=== PATIENT | female | born 1995 | race Caucasian/White ===

== ENCOUNTER 2023-03-27 12:18 | Emergency (ER) | payer MEDICAID, SELFPAY ==
--- NOTE | ~2023-03-27 | US_ITS ---
STUDY: Surgical ultrasound INDICATION: Confirm IUP, positive hCG greater than 6000 COMPARISON: None TECHNIQUE: Transabdominal imaging performed. Permanent documented images obtained. FINDINGS: Single live intrauterine gestation is identified with heart rate of 140 bpm in the cephalic presentation. The estimated weight is 3 lbs. 5 oz., 1490 g. Estimated date of delivery by today's measurements 06/01/2023, from last menstrual period, 08/07/2023. Gestational age is 30 weeks 4 days in comparison with age by last menstrual period of 21 weeks 0 days. Following biometry utilized in the calculations: Biparietal diameter, 8.49 cm, corresponding to 34 weeks 2 days. Occipital frontal diameter, 7.91 cm corresponding to 24 weeks 6 days. Head circumference, 25.78 cm corresponding to 28 weeks 1 day. Abdominal circumference, 25.74 cm corresponding to 30 weeks 0 days. Femur length 5.68 cm corresponding to 29 weeks 6 days. Fluid-filled stomach, bladder, nonhydronephrotic kidneys, four-chamber heart and visualized intracranial structures are unremarkable in appearance. Placenta is anterior in location. US/US OB limited IMPRESSION: Single live 30 week 4 day intrauterine gestation, cephalic presentation, anterior placenta.
--- NOTE | 2023-03-27 12:33 | MHC.CARE ---
Addendum entered by Marcy Amezquita [facility] 03/27/23 12:36: She has been deemed inpt LOC by [facility], who will fax the assessment over once complete. She is pending placement. Original Note: patient seen by YANN in the community. Lidia LERNER reports that patient sent on section 12 due to inability to care for self. Pt presented as religiously pre-occupied, not believed to be eating, no utilizes at her apartment. no furniture. They're concerned she may also be . She is not welcome back at her apartment, possible mold there and due to no utilities, patient has been sleeping in the lobby as there is heat/ electricity there.
--- NOTE | 2023-03-27 12:56 | ED.PSYCH ---
HPI - Psych General Chief Complaint: Psychiatric Symptoms Stated Complaint: SI Time Seen by Provider: 03/27/23 12:27 Source: patient, EMS and RN notes reviewed Mode of arrival: EMS History of Present Illness HPI Narrative: Patient is a 27-year-old female with unknown past medical history presenting to the emergency department on a Section 12 for inability to care for herself. [facility] in the community reports patient has no utilities in her apartment, living space may be infested with mold, and patient likely not eating. Patient currently denies any suicidal or homicidal ideation, denies any auditory or visual hallucinations. States I'm only here because other people don't mind their own business. Patient denies any physical complaints. She denies any drug or alcohol use or ingestion. Denies any falls or other trauma. Patient reports that she was/is but states that I am releasing it, I'm in the process of releasing it. She denies current vaginal bleeding or other vaginal discharge. MD complaint: suicidal ideation Associated symptoms: denies other symptoms Related Data Home Medications Medication Instructions Recorded Confirmed No Known Home Meds 03/27/23 03/27/23 Allergies Allergy/AdvReac Type Severity Reaction Status Date / Time Chocolate AdvReac Hives Verified 03/27/23 18:05 SEAFOOD Allergy Severe ANAPHYLAXIS Uncoded 02/25/20 17:30 Review of Systems Review of Systems: As per HPI. Yes all other systems are reviewed and are negative Constitutional: Constitutional: Reports as per HPI [facility] Social History Social History Advance Directives: No Physical Exam Vital Signs: Vital Signs: Last Vital Signs Temp 97.5 F 03/28/23 00:22 Pulse 63 03/28/23 00:22 Resp 16 03/28/23 00:22 BP 99/55 L 03/28/23 00:22 Pulse Ox 98 03/28/23 00:22 O2 Del Method Room Air 03/28/23 00:22 BMI result Body Mass Index 28.3 Const: General: cooperative, healthy appearing and no acute distress Orientation/consciousness: oriented to person, oriented to place, oriented to time and patient oriented x3 Limitations: no limitations HEENT: Head: Yes normocephalic and Yes atraumatic Ears: external ears normal General nose exam: Normal external nose present Face and sinus: Yes face symmetric Mouth: oropharynx normal and moist mucous membranes Throat: Yes uvula midline Eyes: Pupils: Equal, round and reactive pupils present Neck: Neck: Yes normal visual inspection and Yes supple Resp: Effort & Inspection: normal respiratory effort and able to speak in complete sentences Auscultation: clear to auscultation bilaterally Cardio: Rate: regular rate Rhythm: regular rhythm Heart sounds: S1 normal heart sound present and S2 normal heart sound present GI: Inspection: Yes distended Palpation (GI): Soft to palpation and nontender Auscultation: normoactive bowel sounds : General: Yes no CVA tenderness Back/Spine/Pelvis: Back: no CVA tenderness Skin: General skin exam: elasticity normal and turgor normal Neuro: General: oriented to person, oriented to place, oriented to time, patient oriented x3, moves all extremities, no focal motor deficits and CN's II-XI intact bilaterally Cranial nerves: Yes Equal, round and reactive pupils present Cognition (Neuro): normal cognition Extrem: General: Yes full ROM, Yes no pedal edema and Yes no calf tenderness Psych: Mental Status: mental status grossly normal Speech and movement: Normal speech and movement present Affect: normal affect Attitude: cooperative Thought process: Illogical thought process present Medical Decision Making Medical Decision Making [facility] Narrative: Patient is a 27-year-old female with unknown past medical history presenting to the emergency department on a Section 12 for reported suicidal statements. On exam patient is awake, A+Ox3, VS WNL, afebrile, normal neurological exam without focal deficits, physical exam findings as above. Given reported symptoms and physical exam findings, initial differential includes unable to care for self, anxiety, depression, paranoia, delusions, . Labs notable for positive urine and HCG of 6213. Patient unable to report whether she has or has not had any OB care. Will obtain ultrasound to confirm IUP. Ultrasound notable for confirmed intrauterine . My interpretation is in agreement with the radiologist's interpretation. Patient medically cleared and placed on physician obs for CARE team eval. Differential Diagnosis Differential Diagnoses: The differential diagnosis associated with the presentation includes As per [facility] Admission/Observation Consideration of admission/observation: Escalation of care including admission/observation considered Consult Healthcare Provider Management of the patient was discussed with: [employer] (CARE team) Lab Data [facility] Lab Attestation statement: I reviewed the patient's lab results. As per [facility] 03/27/23 13:51 10/18/23 13:51 Labs: Lab Results 03/27/23 03/27/23 03/27/23 Range/Units 13:45 13:46 13:51 WBC 9.2 (4.8-10.8) X10*3/uL RBC 3.84 L (4.20-5.50) X10*6/uL Hgb 12.0 (12.0-16.0) g/dl Hct 36.2 L (37.0-47.0) % MCV 94.3 (80.0-98.0) fL MCH 31.3 (27.0-33.0) pg MCHC 33.1 (31.0-35.0) g/dl RDW 13.7 (11.0-16.0) % Plt Count 260 (160-400) X10*3/uL MPV 9.3 L (9.4-12.3) fL Immature Gran % (Auto) 0.3 (0.0-0.4) % Neut % (Auto) 81.9 H (45-73) % Lymph % (Auto) 13.1 L (20-40) % [place] % (Auto) 3.8 (2-11) % Eos % (Auto) 0.8 (0-4) % Baso % (Auto) 0.1 (0-2) % Lymph # (Auto) 1.2 (1.2-4.9) X10*3/uL [place] # (Auto) 0.4 (0.1-1.2) X10*3/uL Eos # (Auto) 0.1 (0.0-0.4) X10*3/uL Baso # (Auto) 0.0 (0.0-0.2) X10*3/uL Abs Immat Gran (auto) 0.03 (0.00-0.03) X10*3/uL Absolute Neuts (auto) 7.6 (2.0-8.3) x10*3/uL Absolute Nucleated RBC 0.000 (0.0-0.012) X10*3/uL Nucleated RBC % (auto) 0.0 (0.0-0.2) /100WBC Sodium 136 (135-145) mmol/L Potassium 4.2 (3.3-5.1) mmol/L Chloride 103 (96-108) mmol/L Carbon Dioxide 22 (22-29) mmol/L Anion Gap 15 (12-20) BUN 4 L (9-16) mg/dL Creatinine 0.58 (0.5-1.4) mg/dL Estim Creat Clear Calc 136.2 Estimated GFR > 60 Random Glucose 162 H (60-115) mg/dL Calcium 9.0 (8.4-10.2) mg/dL Beta HCG, Quant 6213 mIU/mL Urine Color Yellow Urine Appearance Clear Urine pH 8.0 (5.0-9.0) Ur Specific [place] 1.020 (1.005-1.025) Urine Protein Trace (Neg-Trace) mg/dL Urine Glucose (UA) Negative (Negative) mg/dL Urine Ketones Negative (Negative) mg/dL Urine Blood Negative (Negative) Urine Nitrite Negative (Negative) Ur Leukocyte Esterase Negative (Negative) Urine RBC 0-2 (0-2) /HPF Urine WBC 0-5 (0-5) /HPF Ur Squamous Epith Cells 0-2 (0-2) /HPF Urine Bacteria None Seen (None Seen) Hyaline Casts 0-2 (0-2) /LPF Urine Test POSITIVE H (NEGATIVE) Salicylates < 5.0 L (15-30) mg/dL Urine Opiates Screen Not Detected (Not Detect) Urine Fentanyl Screen Not Detected (Not Detect) Acetaminophen < 17 (<30) mcg/mL Ur Barbiturates Screen Not Detected (Not Detect) Ur Phencyclidine Scrn Not Detected (Not Detect) Ur Amphetamines Screen Not Detected (Not Detect) U Benzodiazepines Scrn Not Detected (Not Detect) Urine Cocaine Screen Not Detected (Not Detect) U Marijuana (THC) Screen Not Detected (Not Detect) Ethyl Alcohol < 10 mg/dL COVID-19 ([facility]IRDIE) Negative (Negative) COVID-19 Clin Com See Note Independent Interpretation I performed an independent interpretation of an: Ultrasound Interpretation: confirmed IUP Radiology Impression Discussion of test interpretation with radiology: I have reviewed the radiologist's reading. External Record Review External record reviewed: Inpatient record, Office record and Outpatient record Discharge Plan Discharge Clinical Impression: Unable to care for self Patient Disposition: Still a Patient Prescriptions: No Action No Known Home Meds Interventions: Valentine-Suicide Risk Severity Scale Last Done: 03/28/23 05:35
[2023-03-27 13:41] VITALS: BP 123/77; BP 140/80; PULSE 94; PULSE 96; RESP 16; TEMP 36.7; O2SAT 100; O2SAT 99; BMI 28.3
[2023-03-27 13:56] LABS: MANUAL DIFF FLAG NO
[2023-03-27 14:00] LABS: Appearance Urine Clear; Color Urine Yellow; Glucose Urine UA Negative (Negative); Leukocyte Esterase Urine Negative (Negative); Nitrite Urine Negative (Negative); Urine Blood Negative (Negative); Urine Ketones Negative (Negative); Urine Protein Trace mg/dL (Neg-Trace)
[2023-03-27 14:01] LABS: UPreg QC Valid YES
[2023-03-27 14:03] LABS: Red Blood Count 3.84 X10*6/uL (4.20-5.50); White Blood Count 9.2 X10*3/uL (4.8-10.8)
[2023-03-27 14:04] LABS: Basophils Percent Auto 0.1 % (0-2); Eosinophils Absolute Auto 0.1 X10*3/uL (0.0-0.4); Eosinophils Percent Auto 0.8 % (0-4); Hematocrit 36.2 % (37.0-47.0); Imm Gran Abs Auto 0.03 X10*3/uL (0.00-0.03); Imm Gran Pct Auto 0.3 % (0.0-0.4); Lymphocytes Absolute Auto 1.2 X10*3/uL (1.2-4.9); Lymphocytes Percent Auto 13.1 % (20-40); Mean Corpuscular HGB Conc 33.1 g/dl (31.0-35.0); Mean Corpuscular Hemoglobin 31.3 pg (27.0-33.0); Mean Corpuscular Volume 94.3 fL (80.0-98.0); Mean Platelet Volume 9.3 fL (9.4-12.3); Monocytes Absolute Auto 0.4 X10*3/uL (0.1-1.2); Monocytes Percent Auto 3.8 % (2-11); Neutrophils Absolute Auto 7.6 x10*3/uL (2.0-8.3); Neutrophils Percent Auto 81.9 % (45-73); Platelet Count 260 X10*3/uL (160-400); Red Cell Distribution Width 13.7 % (11.0-16.0)
[2023-03-27 14:07] LABS: Bacteria Urine None Seen (None Seen); Hyaline Casts Urine 0-2 /LPF (0-2); RBC Urine 0-2 /HPF (0-2); Squamous Epithelial Cell Urine 0-2 /HPF (0-2); WBC Urine 0-5 /HPF (0-5)
[2023-03-27 14:10] LABS: Urine Pregnancy POSITIVE (NEGATIVE)
[2023-03-27 14:14] LABS: Anion Gap 15 (12-20); Blood Urea Nitrogen 4 mg/dL (9-16); COVID-19 Test Negative (Negative); Carbon Dioxide 22 mmol/L (22-29); Chloride 103 mmol/L (96-108); Creatinine Clr Calc Pharmacy 136.2; Estimated Glomerular Filt Rate > 60; Ethanol < 10 mg/dL; Glucose Random 162 mg/dL (60-115); IDNOW Serial# BCCEAD1C; Potassium 4.2 mmol/L (3.3-5.1); Sodium 136 mmol/L (135-145)
[2023-03-27 14:17] LABS: HCG Quantitative 6213 mIU/mL
[2023-03-27 14:26] LABS: Amphetamine Screen Urine Not Detected (Not Detect); Barbiturates, Urine Not Detected (Not Detect); Benzodiazepines Screen Urine Not Detected (Not Detect); Cannabinoid Screen Urine Not Detected (Not Detect); Cocaine Screen Urine Not Detected (Not Detect); Fentanyl, urine Not Detected (Not Detect); Opiate Screen Urine Not Detected (Not Detect); Phencyclidine Screen Urine Not Detected (Not Detect)
[2023-03-27 14:41] LABS: Acetaminophen LAB < 17 mcg/mL (<30); Salicylate < 5.0 mg/dL (15-30)
--- NOTE | 2023-03-27 17:19 | PC.NURSE ---
client in interactions with this com writer and nilda Grove give the inference that the father of fetus may have misled client into believing she could no become . said the sperm would be declined
--- NOTE | 2023-03-27 19:16 | MHC.CARE ---
Pt seen in community by [facility] crisis team, on section 12 for inability to care for self. Patient is religiously preoccupied, not eating. She is currently . Patient is being evicted, told today she can?t come back. She has had no utilities in her apartment, no furniture, possibly mold in apt, and recently patient has been sleeping in the lobby because of lack of heat/ electricity in her apartment.?
[2023-03-27 20:46] VITALS: BP 106/65; PULSE 87; RESP 18; TEMP 36.4; O2SAT 98
[2023-03-28 00:22] VITALS: BP 99/55; PULSE 63; RESP 16; TEMP 36.4; O2SAT 98
--- NOTE | 2023-03-28 05:59 | PC.NURSE ---
Patient slept through the night, no distress observed/reported, behavior very pleasant spend most of her reading, med rec completed/currently not on any medication,patient is 30 weeks without any care, patient was assessed by [facility] in the community with disposition section 12 inpatient bed search, labs completed/resulted, VSS, will continue to monitor.
--- NOTE | 2023-03-28 11:48 | P.CNPS_ITS ---
History of Present Illness Date of Service: 03/28/2023 Chief Complaint: SI Reason for Consult: psychosis Requesting physician: Jaiden Philippe Discussed with referring provider: Yes Sources of Information: patient interviewed, chart reviewed and crisis/core team assessment reviewed HPI Narrative: Ms. Ng is a 27 year-old woman with hx of schizophrenia. Pt was brought via EMS after being assessed by [facility] crisis due to reports by [facility] staff reporting pt presenting as more paranoid, religiously preoccupied, not eating, sleeping on floor, pt appeared but had not been seen by medical professional and per report there were bloody pads around her. In the ED, pt had US which showed pt is 30 weeks . Utox is negative. Pt is known to this technical writer and editor through previous psychiatric admission with similar presentation at different hospital. In the ED, pt reports bad forces, devil forces are going after her. She reports hearing God's voice telling her that she is protected. Pt reports that God is telling her that giving is not in the plans and that she should have . Pt informed she is 30 weeks . She states God has it all figured out for the , he states that I have to find someone's sperm because I am a virgin. When asked if she was hurting herself given reports of bloody pads in her apartment, she reports there was no blood in her apartment. Pt reports she has been trying to defend herself from these forces. She says some of them look like human others are half spirit and half human. She reports God is telling her that medications are poison and she should not take any medications. She denies SI/HI. She reports she is not trying to harm anyone that she has to protect herself. She reports she has no one here. She used to have her mother but she states she went to [place]. Past Psychiatric History: Inpatient: al least one previous admission at [facility] back in 2018 OP: it appears that [facility] is involved no current medications. Diagnostics Vital Signs (24Hr): Vital Signs - 24 hr 03/27/23 13:41 03/27/23 20:46 03/28/23 00:22 Temperature 98.1 F 97.5 F 97.5 F Pulse Rate 94 87 63 Respiratory Rate 16 18 16 Blood Pressure 123/77 106/65 99/55 L Pulse Oximetry 100 98 98 Oxygen Delivery Method Room Air Room Air Room Air BMI result Body Mass Index 28.3 Labs 03/27/23 13:51 03/27/23 13:51 Labs: Laboratory Results - last 48 hr 03/27/23 03/27/23 03/27/23 13:45 13:46 13:51 WBC 9.2 RBC 3.84 L Hgb 12.0 Hct 36.2 L MCV 94.3 MCH 31.3 MCHC 33.1 RDW 13.7 Plt Count 260 MPV 9.3 L Immature Gran % (Auto) 0.3 Neut % (Auto) 81.9 H Lymph % (Auto) 13.1 L [place] % (Auto) 3.8 Eos % (Auto) 0.8 Baso % (Auto) 0.1 Lymph # (Auto) 1.2 [place] # (Auto) 0.4 Eos # (Auto) 0.1 Baso # (Auto) 0.0 Abs Immat Gran (auto) 0.03 Absolute Neuts (auto) 7.6 Absolute Nucleated RBC 0.000 Nucleated RBC % (auto) 0.0 Sodium 136 Potassium 4.2 Chloride 103 Carbon Dioxide 22 Anion Gap 15 BUN 4 L Creatinine 0.58 Estim Creat Clear Calc 136.2 Estimated GFR > 60 Random Glucose 162 H Calcium 9.0 Beta HCG, Quant 6213 Urine Color Yellow Urine Appearance Clear Urine pH 8.0 Ur Specific [place] 1.020 Urine Protein Trace Urine Glucose (UA) Negative Urine Ketones Negative Urine Blood Negative Urine Nitrite Negative Ur Leukocyte Esterase Negative Urine RBC 0-2 Urine WBC 0-5 Ur Squamous Epith Cells 0-2 Urine Bacteria None Seen Hyaline Casts 0-2 Urine Test POSITIVE H Salicylates < 5.0 L Urine Opiates Screen Not Detected Urine Fentanyl Screen Not Detected Acetaminophen < 17 Ur Barbiturates Screen Not Detected Ur Phencyclidine Scrn Not Detected Ur Amphetamines Screen Not Detected U Benzodiazepines Scrn Not Detected Urine Cocaine Screen Not Detected U Marijuana (THC) Screen Not Detected Ethyl Alcohol < 10 COVID-19 ([facility]) Negative COVID-19 Clin Com See Note Imaging Radiology Impressions: ITS Impressions Obstetrics Ultrasound 03/27/23 15:26 IMPRESSION: Single live 30 week 4 day intrauterine gestation, cephalic presentation, anterior placenta. Mental Status Exam Mental Status Exam Narrative: Appearance: shaved head and eye brows, fair hygiene, lying in bed in NAD Behaviors: guarded Psychomotor: no agitation or retardation noted Speech: clear, normal rate/rhythm/volume, spontaneous TP: tangential TC: denominational and paranoid ideas Mood: okay Affect: fearful and paranoid SI: denies HI: denies VH/AH: hearing voices of God. Delusions: paranoid and denominational delusions Insight/judgment: impaired x 2. Memory/cog: alert, oriented x 3 not to situation Medications Allergies Allergies Allergy/AdvReac Type Severity Reaction Status Date / Time Chocolate AdvReac Hives Verified 03/27/23 18:05 SEAFOOD Allergy Severe ANAPHYLAXIS Uncoded 02/25/20 17:30 Assessment & Plan Assessment & Plan (1) Schizophrenia, paranoid: Status: Acute Code(s): F20.0 - Paranoid schizophrenia Plan Mrs. Ng is a 27 year-old woman with hx of schizophrenia. Brought via EMS after found in her house with no food, sleeping on the floor, disposed all furniture, but had not seen any doctor, per [facility] report bloody pads in the apartment but she denies this. Pt presents with paranoid/persecutory delusions of devil forces going after her due to her denominational believes and connection with God. Pt reports auditory hallucinations of God who has informed her she has to have an . Pt informed she is 30 weeks . Pt insists God has plan for to happen. We discussed starting antipsychotic, pt reports God telling him medications are poison. PLAN 1. continue to meet inpatient level of care due to severe psychiatric symptoms affecting her ability to care for herself and . 2. the benefit of using an antipsychotic during outweighs the risk of use including low weight (which is same risk as not treating mental illness). Pt used to be on risperidone with good effect. 3. Obtain collateral information Total time managing care of this patient today ____ minutes.
[2023-03-28 12:52] VITALS: BP 122/73; PULSE 77; RESP 16; TEMP 36.4; O2SAT 100
[2023-03-28 17:09] VITALS: RESP 18
--- NOTE | 2023-03-28 18:33 | PC.NURSE ---
PT discussing bible multiple times this shift and reporting she needs to see a special doctor that can reverse the sperm and perform an . No medications scheduled and she reports she will not take any medications while . Frequent trips to the nurses desk to read a quote out of the bible and make statements about 'rods and getting rid of the . Very difficult to engage in any further communication. Frequent trips to the bathroom with staff checking for patient safety. No behavioral concerns. Vegan diet but reports she is now more vegetarian .
[2023-03-28 19:52] VITALS: BP 110/72; PULSE 96; RESP 20; TEMP 36.8; O2SAT 98
--- NOTE | 2023-03-29 04:06 | PC.NURSE ---
Patient slept through the night, no distress observed/reported, behavior pleasant and non concerning but thought content is grossly disorganized, med rec completed/currently not on any medication, patient is 30 weeks without any care, patient was re-assessed by [facility] with disposition section 12 inpatient bed search, bed search was exhausted yesterday, labs completed/resulted, VSS, will continue to monitor.
--- NOTE | 2023-03-29 07:09 | PC.NURSE ---
patient appears to remain asleep at present respirations are lenny and unlabored patient appears in no distress
--- NOTE | 2023-03-29 10:56 | MHC.CARE ---
CARE Team received a call from Margarita Marrero real estate assistant at [facility] ([phone]) . She provided t/w with contact information to give to Pt and put on file.
[2023-03-29 23:17] VITALS: BP 105/55; PULSE 89; RESP 16; TEMP 36.3; O2SAT 100
--- NOTE | 2023-03-30 06:23 | PC.NURSE ---
Patient slept through the night, no distress observed/reported, behavior pleasant and non concerning but thought content is grossly disorganized, med rec completed/currently not on any medication, patient is 30 weeks without any care, per [facility] patient's disposition is section 12 inpatient bed search, labs completed/resulted, VSS, will continue to monitor.
--- NOTE | 2023-03-30 07:07 | PC.NURSE ---
patient appears to remain asleep at present respirations are even and unlabored patient appears in no distress
--- NOTE | 2023-03-30 14:34 | PHA.MEDREC ---
Pharmacy Consult ? Medication Reconciliation Pharmacy has completed the medication reconciliation. No home meds per nursing
[2023-03-30 18:25] VITALS: BP 105/64; PULSE 83; RESP 16; TEMP 36.6; O2SAT 100
[2023-03-30 23:17] VITALS: BP 112/71; PULSE 78; RESP 16; TEMP 36.4; O2SAT 99
[2023-03-30] MEDS: polyethylene glycoL 3350 17 GM POWD.PACK PO (23:49)
--- NOTE | 2023-03-31 05:58 | PC.NURSE ---
Patient was up until 4 am and sleeping since, no distress observed/reported for constipation/admiistered Miralax 17 g as ordered at 2349 with pending effect, behavior pleasant and non concerning but thought content is still grossly disorganized, med rec completed/currently not on any medication, patient is 30 weeks without any care, per [facility] patient's disposition is section 12 inpatient bed search, no update on bed search, labs completed/resulted, VSS, will continue to monitor.
--- NOTE | 2023-03-31 07:25 | PC.NURSE ---
patient appears to remain asleep at present respirations are even and unlabored patient appears in no distress.
[2023-03-31 16:15] VITALS: BP 111/67; PULSE 92; RESP 20; TEMP 36.7; O2SAT 100
[2023-03-31] MEDS: polyethylene glycoL 3350 17 GM POWD.PACK PO (18:20)
[2023-03-31 23:24] VITALS: RESP 16
--- NOTE | 2023-04-01 00:52 | PC.NURSE ---
Assumed care of patient at 2300, pt has been laying awake on bed in room. Offers no complaints to this RN, respirations even and unlabored, skin pwd. Pt up to restroom a couple times
[2023-04-01 06:19] VITALS: RESP 14
[2023-04-01 07:07] VITALS: BP 113/64; PULSE 84; RESP 18; TEMP 36.6; O2SAT 100
[2023-04-01 16:26] VITALS: RESP 18
[2023-04-01] MEDS: polyethylene glycoL 3350 17 GM POWD.PACK PO (16:53)
--- NOTE | 2023-04-01 18:45 | PC.NURSE ---
Client visible in milieu most of shift. No behavioral concerns. Ate 100% of veggie burger at lunch and requested another, ate 100% of second as well. Easy to engage when approached. Very disorganized thought process still denying and stating god has the say and it's not true . Pleasant otherwise. Miralax given PO awaiting effect. Denies SI/HI/AVH
[2023-04-01 21:42] VITALS: BP 105/61; PULSE 73; RESP 16; TEMP 36.2; O2SAT 100
--- NOTE | 2023-04-02 05:57 | PC.NURSE ---
Patient slept through the night, no distress observed/reported, behavior pleasant and non concerning but thought content is grossly disorganized, med rec completed/currently not on any medication, patient is 31 weeks , [facility] reassessed the patient yesterday evening with disposition is section 12 inpatient bed search, labs completed/resulted, VSS, will continue to monitor.
[2023-04-02 05:58] VITALS: RESP 14
--- NOTE | 2023-04-02 07:06 | PC.NURSE ---
patient appears to remain at rest at present respirations are even and unlabored patient appears in no distress.
[2023-04-02 08:18] VITALS: BP 102/54; PULSE 70; RESP 17; TEMP 36.6; O2SAT 100
[2023-04-02] MEDS: polyethylene glycoL 3350 17 GM POWD.PACK PO (13:22)
--- NOTE | 2023-04-02 14:42 | P.CNPS_ITS ---
History of Present Illness Date of Service: 04/02/2023 Chief Complaint: SI Requesting physician: Jaiden Philippe Discussed with referring provider: Yes Sources of Information: patient interviewed, chart reviewed and crisis/core team assessment reviewed HPI Narrative: Interim Hx: pt continues to present with presybeterian delusions and persecutory delusions. She continues to report she is not and that's not part of God's plan. She reports her belly is due to bloating and constipation. Pt showed pic of ultrasound and video of US. Still reports this information manipulated by [employer]. Pt continues to report that medications are poisoned, against my elana and my God. No combative behaviors. no aggression towards others or herself other that severely impaired and unable to care for herself due to severe psychiatric symptoms. Past Psychiatric History: Inpatient: al least one previous admission at [facility] back in 2018 OP: it appears that service net is involved no current medications. Diagnostics Vital Signs (24Hr): Vital Signs - 24 hr 04/01/23 16:26 04/01/23 21:42 04/02/23 05:58 Temperature 97.2 F Pulse Rate 73 Respiratory Rate 18 16 14 Blood Pressure 105/61 Pulse Oximetry 100 Oxygen Delivery Method Room Air 04/02/23 08:18 Temperature 97.9 F Pulse Rate 70 Respiratory Rate 17 Blood Pressure 102/54 L Pulse Oximetry 100 Oxygen Delivery Method Room Air BMI result Body Mass Index 28.3 Labs 03/27/23 13:51 03/27/23 13:51 Imaging Radiology Impressions: ITS Impressions Obstetrics Ultrasound 03/27/23 15:26 IMPRESSION: Single live 30 week 4 day intrauterine gestation, cephalic presentation, anterior placenta. Mental Status Exam Mental Status Exam Narrative: Appearance: shaved head and eye brows, fair hygiene, lying in bed in NAD Behaviors: guarded Psychomotor: no agitation or retardation noted Speech: clear, normal rate/rhythm/volume, spontaneous TP: tangential TC: presybeterian and paranoid ideas Mood: okay Affect: fearful and paranoid SI: denies HI: denies VH/AH: hearing voices of God. Delusions: paranoid and presybeterian delusions Insight/judgment: impaired x 2. Memory/cog: alert, oriented x 3 not to situation Medications Medications Current Medications Polyethylene Glycol (Polyethylene Glycol 3350 17 Gm Powd.Pack) 17 gm PO DAILY PRN PRN Reason: Constipation Last Admin: 04/02/23 13:22 Dose: 17 gm Allergies Allergies Allergy/AdvReac Type Severity Reaction Status Date / Time hazelnut [filbert] Allergy Rash Verified 03/31/23 13:14 Chocolate AdvReac Hives Verified 03/27/23 18:05 SEAFOOD Allergy Severe ANAPHYLAXIS Uncoded 02/25/20 17:30 Assessment & Plan Assessment & Plan (1) Schizophrenia, paranoid: Status: Acute Code(s): F20.0 - Paranoid schizophrenia Plan Mr. Ng is a 27 year-old woman with hx of schizophrenia. Pt continues to present with presybeterian and paranoid delusions. Not able to care for self and delusions include not believing that she is or need any care for it as God says this is not in her plans. PLAN 1. continues to need inpatient level of care due to pt being gravely disable due to psychiatric symptoms. Total time managing care of this patient today ____ minutes.
--- NOTE | 2023-04-03 05:20 | PC.NURSE ---
Patient slept through the night, no distress observed/reported, behavior pleasant and non concerning, med rec completed/currently not on any medication, patient is 31 weeks , disposition per [facility] is section 12 inpatient bed search, labs completed/resulted, VSS, will continue to monitor.
[2023-04-03 09:15] LABS: COVID-19 Test Negative (Negative); IDNOW Serial# 08D9AD1C
--- NOTE | 2023-04-03 10:45 | MHC.CARE ---
CARE Team faxed medical to [facility] per request of [facility]
--- NOTE | 2023-04-03 12:02 | MHC.CARE ---
Pt accepted to [facility] for 3pm
[2023-04-03 14:18] VITALS: RESP 18
--- NOTE | 2023-04-03 15:11 | PC.NURSE ---
Vibha was visible in the POD this shift and was pleasant on approach. She is currently still denying being and reports it will all be discovered soon Transfer to [facility] arranged for 1500. Vibha has had no complaints of pain or discomfort.
== END 2023-04-03 15:17 | disposition short-term general hospital (02) ==
PROVIDERS: Emergency Medicine; Registered Nurse Emergency; Emergency Provider Emergency Medicine Emergency Medical Services
DX: F20.0 Paranoid schizophrenia (principal); O99.343 Other mental disorders complicating pregnancy, third trimester; Z3A.31 31 weeks gestation of pregnancy; R45.851 Suicidal ideations; K59.00 Constipation, unspecified; Z11.52 Encounter for screening for COVID-19; Z20.822 Contact with and (suspected) exposure to COVID-19; Z79.899 Other long term (current) drug therapy
CPT/HCPCS: 36415; 76815; 80048; 80143; 80179; 80307; 81001; 81025; 84702; 85025; 87635; 99285

== ENCOUNTER → 2023-03-27 14:50 | Outpatient (BNV) | payer OTHER, SELFPAY | PROVIDERS: Emergency Provider Emergency Medicine Emergency Medical Services; Visit Provider Social Worker | DX: F20.0 Paranoid schizophrenia (principal) | CPT/HCPCS: 99285 ==

== ENCOUNTER 2024-12-22 19:34 | Emergency (ER) | payer MEDICAID, SELFPAY ==
[2024-12-22 19:42] VITALS: BP 175/80; PULSE 98; O2SAT 97
[2024-12-22 19:54] VITALS: BMI 49.1
[2024-12-22 19:59] VITALS: BP 110/60; PULSE 82; RESP 17; TEMP 36.7; O2SAT 99
--- NOTE | 2024-12-22 20:11 | MHC.CARE ---
Call from [facility]'s Clinician Alia, who reported she assessed patient at their facility and found her to not meet IPLOC at this time. Patient expressed wanting to be seen at the ED anyway, so she called an EMT for herself. [facility] reports patient was just d/c'd from [place] after a 2 week admission. Patient is endorsing SI w/ thoughts to eat shrimp, which she is allergic to, to cause an anaphylaxis reaction. Patient is on her way to [place] [facility]. [facility] will send over the assessment when complete.
--- NOTE | 2024-12-22 20:20 | PC.NURSE ---
Pt calm and cooperative. Pt reports wanting to go to sleep and not wake up. Pt also reports thoughts of going to a restaurant and eating shrimp to end her life due to her allergy. She states she has thoughts about harming herself. Pt reports family moved to [place] but she had to stay up here due to pending court dates. Pt states she doesn't have any feelings of hope. Verbal reassurance provided to patient. Pt sitting up on bed in room and watching television.
[2024-12-22 20:35] LABS: MANUAL DIFF FLAG NO
[2024-12-22 20:36] LABS: Hematocrit 36.3 % (37.0-47.0); Hemoglobin 11.9 g/dl (12.0-16.0); Imm Gran Abs Auto 0.02 X10*3/uL (0.00-0.03); Imm Gran Pct Auto 0.2 % (0.0-0.4); Lymphocytes Absolute Auto 3.0 X10*3/uL (1.2-4.9); Mean Corpuscular HGB Conc 32.8 g/dl (31.0-35.0); Mean Corpuscular Hemoglobin 28.3 pg (27.0-33.0); Mean Corpuscular Volume 86.4 fL (80.0-98.0); NRBC Abs Auto 0.000 X10*3/uL (0.0-0.012); NRBC Pct Auto 0.0 /100WBC (0.0-0.2); Platelet Count 252 X10*3/uL (160-400); Red Blood Count 4.20 X10*6/uL (4.20-5.50); White Blood Count 8.5 X10*3/uL (4.8-10.8)
[2024-12-22 20:54] LABS: Alanine Aminotransferase 13 U/L (0-31); Albumin Level 4.1 g/dL (3.5-5.0); Alkaline Phosphatase 82 U/L (39-117); Anion Gap 12 (12-20); Aspartate Amino Transferase 18 U/L (5-31); Blood Urea Nitrogen 13 mg/dL (9-16); Calcium 8.9 mg/dL (8.4-10.2); Carbon Dioxide 26 mmol/L (22-29); Chloride 105 mmol/L (96-108); Creatinine Clr Calc Pharmacy 162.6; Estimated Glomerular Filt Rate > 60; Potassium 4.1 mmol/L (3.3-5.1); Sodium 139 mmol/L (135-145); Total Protein 7.6 g/dL (6.5-8.0)
--- NOTE | 2024-12-22 22:35 | ED.PSYCH ---
HPI - Psych General Chief Complaint: Psychiatric Symptoms Stated Complaint: SI, recent d/c from [facility] Time Seen by Provider: 12/22/24 21:05 Source: patient and EMS Mode of arrival: EMS Limitations: no limitations History of Present Illness ED Provider: Dr. Paris Mcgrath HPI Narrative: Patient comes to the emergency room complaining of suicidal ideation. Patient states that she was discharged from [facility] yesterday. Patient states that she got monthly injection, does not take any p.o. medications. Patient denies HI. Patient states that she had no other place to go and had thoughts of harming herself, denies hurting herself in any way before arriving to the ED here today Related Data Home Medications ?Medication ?Instructions ?Recorded ?Confirmed Vitamin D3 1 tab PO DAILY 12/23/24 01/02/25 paliperidone palmitate 117 mg/0.75 117 mg IM QMONTH 12/23/24 01/02/25 mL intramuscular syringe (Invega Sustenna) Allergies Allergy/AdvReac Type Severity Reaction Status Date / Time hazelnut (filbert) Allergy Rash Verified 01/01/25 18:16 cashew nut AdvReac Hypotension Verified 01/01/25 18:16 Chocolate AdvReac Hives Verified 01/01/25 18:16 lactose AdvReac Gastrointestinal Verified 01/01/25 18:16 Upset SEAFOOD Allergy Severe ANAPHYLAXIS Uncoded 01/01/25 18:16 Review of Systems Review of Systems: Constitutional : No Weight loss, No Fever, No Chills, No Night Sweats, No Fatigue, No Malaise ENT/Mouth : No Hearing loss, No Ear Pain, No Nasal Congestion, No Sinus Pain, No Hoarseness, No sore throat, No Rhinorrhea, No Swallowing Difficulty Eyes: No Eye Pain, No Swelling, No Redness, No Foreign Body, No Discharge, No Vision Changes Cardiovascular : No Chest Pain, No SOB, No Dyspnea on Exertion, No Orthopnea, No Edema, No Palpitations Respiratory : No Cough, No Sputum, No Wheezing, No Smoke Exposure, No Dyspnea Gastrointestinal : No Nausea, No Vomiting, No Diarrhea, No Constipation, No abdominal Pain, No Hematochezia, No Melena Genitourinary : no irregular bleeding, No Dysuria, No Urinary Frequency, No Hematuria, No Urinary Incontinence, No Urgency, No Flank Pain, No Urinary Flow Changes, No Hesitancy Musculoskeletal : No joint pain, No Myalgias, No Joint Swelling Skin : No Skin Lesions, No rash Neuro : No Weakness, No Numbness, No Paresthesias, No Loss of Consciousness, No Dizziness, No Headache Psych : Complaining of depression and suicidal ideation, denies HI Heme/Lymph: No Bruising, No Bleeding,No Lymphadenopathy Endocrine : No Polyuria, No Polydipsia, No Temperature Intolerance [facility] Past Medical History Medical History (Updated 12/26/24 @ 00:00 by Background Daemon) Schizophrenia, paranoid Social History Social History Advance Directives: No Advance Directives Information Provided: No Do you have a plan to hurt others: No Plan Physical Exam Vital Signs: Vital Signs: Last Vital Signs Temp 97.1 F 01/01/25 12:03 Pulse 85 01/01/25 12:03 Resp 16 01/01/25 12:03 BP 140/79 H 01/01/25 12:03 Pulse Ox 100 01/01/25 12:03 O2 Del Method Room Air 01/01/25 12:03 BMI result Body Mass Index 49.1 Const: Other: Appearance: Alert. Oriented X3. No acute distress. Eyes: Pupils equal, round and reactive to light. ENT: Pharynx normal. Neck: Normal inspection. Neck supple. No lymph nodes noted. No crepitus CVS: Normal heart rate and rhythm. Pulses normal. Normal S1 and S2 Respiratory: No respiratory distress. Breath sounds normal. No Wheezing. No rales Abdomen: Soft and nontender. No rigidity. No distention. Skin: Skin warm and dry. Normal skin color. Normal skin turgor. Extremities: No lower extremity edema. No Lacerations. No Rash Neuro: Oriented X 3. No motor deficit. No sensory deficit. Moving all extremities. No slurred speech. CN 2 through 12 grossly intact Psych: calm, cooperative, normal affect Course Course Course Narrative: Patient was discharged yesterday from [facility]. Patient comes in complaining of suicidal ideation, no HI. All of patient's labs Care team consult pending Physician observation started at 22:30 Reevaluation(s) Reevaluation #1: Patient is going into respite tomorrow Time: 17:17 Reevaluation #2: Time: 09:21 Date: 12/24/24 Provider: Aissatou Guy, DO Patient in physician observation for psychiatric evaluation.? No acute events reported overnight. No current complaints. VS stable.? Patient is in bed search status. Will continue to monitor. notified by CARE team given concerns she is not IPBS but they want CM involved for safe DC planning MILLIE 12/24/24 138pm Time: 07:00 Reevaluation #3: Time: 12:16 Date: 12/25/24 Provider: Skyler Johansen, DO Patient in physician observation for psychiatric evaluation.? No acute events reported overnight. Awaiting case management for safe d/c planning Additional Reevaluation(s): Time: 12:16 Date: 12/26/24 Provider: DR. Ta's progress note Patient in physician observation for psychiatric evaluation.? No acute events reported overnight. Awaiting case management for safe d/c planning Consultations Consultation #1: Time: 10:00 Date: 12/27/24 Provider: DR. Ta's progress note Patient in physician observation for psychiatric evaluation.? No acute events reported overnight. Awaiting case management for safe d/c planning Time: 10:00 Consultation #2: Time: 07:04 Date: 12/28/24 Provider: Jairo Martinez MD Patient in physician observation for psychiatric evaluation.? No acute events reported overnight. No current complaints. VS stable.? Patient is in bed search status/pending CARE team evaluation. Will continue to monitor. Consultation #3: Time: 07:18 Date: 12/29/24 Provider: Jairo Martinez MD Patient in physician observation for psychiatric evaluation.? No acute events reported overnight. No current complaints. VS stable.? Patient is in bed search status/pending CARE team evaluation. Will continue to monitor. Additional Consultation(s): 12/30/2024 08:56 the patient remained clinically stable no event reported overnight no complaint. 12/31/2024 Magalis Ch PA-C ---> Observation continues. Time: 11:41 Date: 01/01/25 Provider: Ivonne Bergman CNP Patient in physician observation for case management needs, she was advised that she may remain in the emergency department until 01/04/2025 to determine whether she would be a candidate for respite through [facility], she however declines. She reports it at this time she has now been offered a place to stay with a friend and she would like to be discharged. She has been evaluated and has been not been deemed inpatient level of care for psych services. Denying any suicidal ideations. At this time feel that she is stable for discharge, ending physician observation time. Medications Administered Discontinued Medications Generic Name Dose Route Start Last Admin Trade Name Terrance PRN Reason Stop Dose Admin Pat Own Med ( 0.5 mg 12/29/24 14:30 12/29/24 15:45 Cabergoline 0.5 Mg PO 0.5 mg Tab) Q7D DOV Administration Vitamin D 10 mcg 12/29/24 09:00 01/01/25 09:01 Cholecalciferol (Vitamin D3) 10 Mcg Tablet PO 10 mcg DAILY DOV Administration Medical Decision Making Medical Decision Making [facility] Narrative: My interpretation of labs: No significant abnormality in patient's hematology, chemistry within normal limits, normal LFTs, ETOH negative Differential Diagnosis Differential Diagnoses: The differential diagnosis associated with the presentation includes (Anxiety, depression, schizophrenia) Admission/Observation Consideration of admission/observation: Escalation of care including admission/observation considered (Patient is under physician observation waiting to be seen by the care team to determine patient's disposition) Lab Data [facility] Lab Attestation statement: I reviewed the patient's lab results. 12/22/24 20:27 12/22/24 20:27 Labs: Lab Results 12/22/24 12/22/24 12/25/24 Range/Units 20:27 22:36 14:28 WBC 8.5 (4.8-10.8) X10*3/uL RBC 4.20 (4.20-5.50) X10*6/uL Hgb 11.9 L (12.0-16.0) g/dl Hct 36.3 L (37.0-47.0) % MCV 86.4 (80.0-98.0) fL MCH 28.3 (27.0-33.0) pg MCHC 32.8 (31.0-35.0) g/dl RDW 14.2 (11.0-16.0) % Plt Count 252 (160-400) X10*3/uL MPV 9.2 L (9.4-12.3) fL Immature Gran % (Auto) 0.2 (0.0-0.4) % Neut % (Auto) 55.9 (45-73) % Lymph % (Auto) 35.0 (20-40) % Union % (Auto) 6.7 (2-11) % Eos % (Auto) 2.1 (0-4) % Baso % (Auto) 0.1 (0-2) % Lymph # (Auto) 3.0 (1.2-4.9) X10*3/uL Union # (Auto) 0.6 (0.1-1.2) X10*3/uL Eos # (Auto) 0.2 (0.0-0.4) X10*3/uL Baso # (Auto) 0.0 (0.0-0.2) X10*3/uL Abs Immat Gran (auto) 0.02 (0.00-0.03) X10*3/uL Absolute Neuts (auto) 4.7 (2.0-8.3) x10*3/uL Absolute Nucleated RBC 0.000 (0.0-0.012) X10*3/uL Nucleated RBC % (auto) 0.0 (0.0-0.2) /100WBC Sodium 139 (135-145) mmol/L Potassium 4.1 (3.3-5.1) mmol/L Chloride 105 (96-108) mmol/L Carbon Dioxide 26 (22-29) mmol/L Anion Gap 12 (12-20) BUN 13 (9-16) mg/dL Creatinine 0.67 (0.5-1.4) mg/dL Estim Creat Clear Calc 162.6 Estimated GFR > 60 Random Glucose 113 (60-115) mg/dL Calcium 8.9 (8.4-10.2) mg/dL Total Bilirubin 0.3 (0.0-1.0) mg/dL AST 18 (5-31) U/L ALT 13 (0-31) U/L Alkaline Phosphatase 82 (39-117) U/L Total Protein 7.6 (6.5-8.0) g/dL Albumin 4.1 (3.5-5.0) g/dL Prolactin 60.7 H ng/mL Beta HCG, Quant < 2 mIU/mL Urine Color Yellow Urine Appearance Clear Urine pH 6.5 (5.0-9.0) Ur Specific [place] <= 1.005 (1.005-1.025) Urine Protein Negative (Neg-Trace) mg/dL Urine Glucose (UA) Negative (Negative) mg/dL Urine Ketones Negative (Negative) mg/dL Urine Blood Negative (Negative) Urine Nitrite Negative (Negative) Ur Leukocyte Esterase Negative (Negative) Urine Test NEGATIVE (NEGATIVE) Urine Opiates Screen Not Detected (Not Detect) Ur Buprenorphine Scrn Not Detected (Not Detect) ng/mL Ur Oxycodone Screen Not Detected (Not Detect) ng/mL Urine Methadone Screen Not Detected (Not Detect) ng/mL Urine Fentanyl Screen Not Detected (Not Detect) Ur Barbiturates Screen Not Detected (Not Detect) Ur Phencyclidine Scrn Not Detected (Not Detect) Ur Amphetamines Screen Not Detected (Not Detect) U Benzodiazepines Scrn Not Detected (Not Detect) Urine Cocaine Screen Not Detected (Not Detect) U Marijuana (THC) Screen Not Detected (Not Detect) Ethyl Alcohol < 10 mg/dL Critical Care Time Critical Care Time Critical Care Time: Yes Total Critical Care Time: 35 Attestation: I have personally provided critical care time. Time includes review of lab data, radiology results, discussion with consultants, and monitoring for potential decompensation. Intervention performed as documented. Discharge Plan Discharge Clinical Impression: Suicidal ideation Patient Disposition: Home, Self-Care Instructions: Help Prevent Suicide (ED) Additional Instructions: You were seen in our Emergency Department today for treatment of a behavioral health issue. It is important after your visit that you follow up with either your behavioral health provider or a primary care doctor within 7 days.? If you have trouble finding a therapist you can reach out to [address] [phone] The National Suicide and Crisis Lifeline can be reached 7 days a week 24 hours a day.? Call 988 to speak with someone.? Return for any worsening symptoms or concerns such as thoughts of self harm or harm to others. Please call 911 if you feel your mental health is worsening.? While in the emergency department you were not found to meet inpatient psychiatric level of care. He was offered you to remain in the emergency department until Saturday to have evaluation for potential behavioral health respite. However, you are requesting to be discharged so that you may stay with a friend which is right full your choice. Prescriptions: Discontinued cabergoline 0.5 mg Tablet 0.5 mg PO TUTH No Action Invega Sustenna 117 mg/0.75 mL Syringe 117 mg IM QMONTH Vitamin D3 1 tab PO DAILY Referrals: Hadley Porras MD [Primary Care Provider, Medical] Interventions: [place]-Suicide Risk Severity Scale Last Done: 01/01/25 12:03 ED Discharge Assessment Last Done: 01/01/25 12:03 Discharge Date/Time: 01/01/25 12:05 Print Language: Emirati
[2024-12-22 22:46] LABS: Appearance Urine Clear; Glucose Urine UA Negative (Negative); PH 6.5 (5.0-9.0); Specific Gravity - Urine <= 1.005 (1.005-1.025); UPreg QC Valid YES
[2024-12-22 22:54] LABS: Cannabinoid Screen Urine Not Detected (Not Detect)
--- NOTE | 2024-12-22 23:39 | PC.NURSE ---
Assumed care of patient at 2245, patient appears to be sleeping, no apparent distress is noted at this time. Continue plan of care for care team assessment
--- NOTE | 2024-12-23 06:13 | PC.NURSE ---
Patient continues to sleep without issue, respirations even and unlabored, no apparent distress noted
[2024-12-23 06:42] VITALS: BP 127/77; PULSE 60; RESP 17; TEMP 36.7; O2SAT 100
--- NOTE | 2024-12-23 15:25 | MHC.CARE ---
plan to consider for ACCS at [facility] in the morning. If no beds available, [facility]
--- NOTE | 2024-12-23 15:44 | PHA.MEDREC ---
Addendum entered by Francesco Almeida RPh 12/23/24 18:46: med rec checked by [facility]. called facility again and left second message to confirm med list. will update if we hear anything else Original Note: Pharmacy Consult ? Medication Reconciliation Pharmacy has completed the medication reconciliation. Spoke with pt this morning and Pt stated she was taking a Vitamin D3 tab once daily and Cabergoline tablet TUTH and getting them filled at [facility]; I called them and they were not aware of those medications but stated she revently got Invega 3mg Er tab, Invega Sustenna 117mg, Mounjaro2.5mg and Ziprasidone 20mg from them. I went back and spoke with the pt again and she she stated she no longer takes the Invega 3mg Er tab and is now taking the Invega Injection once a month; pt last got it about 1 week ago she confirmed, she no longer takes the Ziprasidone; it dropped the pt cholesterol too much. Pt also states she was just at [facility] and Dc'd 12/21 from there; I called and had to leave a voicemail @[phone].
[2024-12-23 21:00] VITALS: BP 108/61; PULSE 70; RESP 16; TEMP 37.1; O2SAT 99
--- NOTE | 2024-12-23 21:00 | PC.NURSE ---
Pt a&Ox4, no signs of distress Pt denies pain at this time Pt ambulates with a steady gait Pt at nurses station requested and given food and drink Plan of care ongoing.
--- NOTE | 2024-12-23 21:12 | PC.NURSE ---
Pt requested and given toothpaste Plan of care ongoing.
[2024-12-24 08:11] VITALS: BP 105/59; PULSE 98; RESP 16; TEMP 37; O2SAT 98
--- NOTE | 2024-12-24 08:47 | PC.NURSE ---
Assumed care of patient at 0645, patient appears to be in no apparent distress at this time, calm and cooperative, offering no complaints to this RN. Continue plan of care for IPLOC
--- NOTE | 2024-12-24 14:19 | P.CNPS_ITS ---
History of Present Illness Date of Service: 12/24/2024 Chief Complaint: SI, recent d/c from [place] Discussed with referring provider: Yes Sources of Information: patient interviewed, chart reviewed and crisis/core team assessment reviewed HPI Narrative: Ms. Ng is a 29 year-old woman with hx of schizophrenia and intellectual disability. She is known to this writer producer through previous psychiatric assessments and admission due to increased paranoid delusions. She was last seen at [facility] back in 03/2023 when she was sent due to not eating, not caring for herself, and not believing she was as voices telling her she was not . She was ultimately admitted at [facility] for psychiatric care. This time she self-present due to increase depression, passive suicidal ideation reporting she felt she does not fit in this world and she has lost all her blessings. She goes on about the two daughters she has given who are now in [facility] costudy. She also reports she lost her apartment and no longer in a relationship with her . She reports she feels hopeless because she can't have a normal life, like everyone else. She reports she has been receiving Invega Sustenna 117mg IM- she does not think she needs it. However, having seen patient in the past when not psychiatrically stable she is greatly benefiting from this medication. She has limited insight into how severity of her mental illness has affected other areas of her life including being able to care for her daughters, stating that it was the devil who has intervened and has caused this to her. Past Psychiatric History: Inpatient: [facility] back in 2017; [facility] 03/2023; [place] 12/2024. OP: [facility] Medical History (Updated 12/24/24 @ 14:19 by Erendira Ortiz NP) Schizophrenia, paranoid Diagnostics Vital Signs (24Hr): Vital Signs - 24 hr 12/23/24 21:00 12/24/24 08:11 Temperature 98.7 F 98.6 F Pulse Rate 70 98 Respiratory Rate 16 16 Blood Pressure 108/61 105/59 L Pulse Oximetry 99 98 Oxygen Delivery Method Room Air Room Air Blow By BMI result Body Mass Index 49.1 Labs 12/22/24 20:27 12/22/24 20:27 Labs: Laboratory Results - last 48 hr 12/22/24 12/22/24 20:27 22:36 WBC 8.5 RBC 4.20 Hgb 11.9 L Hct 36.3 L MCV 86.4 MCH 28.3 MCHC 32.8 RDW 14.2 Plt Count 252 MPV 9.2 L Immature Gran % (Auto) 0.2 Neut % (Auto) 55.9 Lymph % (Auto) 35.0 [place] % (Auto) 6.7 Eos % (Auto) 2.1 Baso % (Auto) 0.1 Lymph # (Auto) 3.0 [place] # (Auto) 0.6 Eos # (Auto) 0.2 Baso # (Auto) 0.0 Abs Immat Gran (auto) 0.02 Absolute Neuts (auto) 4.7 Absolute Nucleated RBC 0.000 Nucleated RBC % (auto) 0.0 Sodium 139 Potassium 4.1 Chloride 105 Carbon Dioxide 26 Anion Gap 12 BUN 13 Creatinine 0.67 Estim Creat Clear Calc 162.6 Estimated GFR > 60 Random Glucose 113 Calcium 8.9 Total Bilirubin 0.3 AST 18 ALT 13 Alkaline Phosphatase 82 Total Protein 7.6 Albumin 4.1 Beta HCG, Quant < 2 Urine Color Yellow Urine Appearance Clear Urine pH 6.5 Ur Specific Badger <= 1.005 Urine Protein Negative Urine Glucose (UA) Negative Urine Ketones Negative Urine Blood Negative Urine Nitrite Negative Ur Leukocyte Esterase Negative Urine Test NEGATIVE Urine Opiates Screen Not Detected Ur Buprenorphine Scrn Not Detected Ur Oxycodone Screen Not Detected Urine Methadone Screen Not Detected Urine Fentanyl Screen Not Detected Ur Barbiturates Screen Not Detected Ur Phencyclidine Scrn Not Detected Ur Amphetamines Screen Not Detected U Benzodiazepines Scrn Not Detected Urine Cocaine Screen Not Detected U Marijuana (THC) Screen Not Detected Ethyl Alcohol < 10 Mental Status Exam Mental Status Exam Narrative: Appearance: MO, wearing hospital gown, fair hygiene, in NAD behavior: cooperative and friendly Psychomotor: no agitation or retardation noted. Speech: clear, normal, rate/rhythm/volume, spontaneous TP: mostly linear TC: no overt psychosis, grieving losses she has had including losing costudy of her daughters Mood: depressed Affect: congruent SI: denies any plan or intent to harm herself HI: none VH/AH: no overt Delusions: no overt delusions Insight/judgment: impaired x 2. Memory/cog: alert, oriented x 3. Medications Allergies Allergies Allergy/AdvReac Type Severity Reaction Status Date / Time hazelnut (helena) Allergy Rash Verified 12/22/24 19:59 Chocolate AdvReac Hives Verified 12/22/24 19:59 lactose AdvReac Gastrointestinal Verified 12/23/24 13:07 Upset SEAFOOD Allergy Severe ANAPHYLAXIS Uncoded 12/22/24 19:59 Assessment & Plan Assessment & Plan (1) Schizophrenia, paranoid: Status: Acute Code(s): F20.0 - Paranoid schizophrenia (2) Intellectual disability: Status: Acute Code(s): F79 - Unspecified intellectual disabilities Plan Ms. Ng is a 29 year-old woman with extensive psychiatric hx of severe paranoid delusions, intellectual disability. She self presented to [facility] reporting increase depression in context of multiple losses including costudy of her daughters and not having a stable place to live. She also has hx of intellectual disability and does struggle navigating on her own resources to secure adequate housing. She presents psychiatrically stable. However, her overall insight into her mental illness is limited, questioning need of ongoing medications, which is concerning because when she decompensates she becomes very sick and takes several months to stabilize. PLAN 1. No imminent safety concerns in terms acute psychiatric symptoms. 2. Pt's ability to care for herself is limited due to underlying intellectual disability even when psychiatrically stable. Needs a guardian to help with medical decisions, placement, manage of finances. Total time managing care of this patient today ____ minutes.
--- NOTE | 2024-12-24 15:30 | MHC.CM.ED ---
Received case management consult from Dr Guy. Patient was cleared by Care Team. There is a question of patient requiring a guardian/Zaid's order due to intellectual delay and question of patient having the ability to take care of herself. Psych consult with Erendira is pending. Jessie Mendoza CM Director aware and is waiting for a return call from [employer]. Continue to monitor for d/c needs.
--- NOTE | 2024-12-24 19:35 | PC.NURSE ---
Pt has had uneventful day thus far, showered twice, ate all three meals, offering no complaints to this RN
[2024-12-24 20:42] VITALS: BP 116/57; PULSE 83; RESP 18; TEMP 36.6; O2SAT 99
--- NOTE | 2024-12-24 23:44 | PC.NURSE ---
assumed care of pt from pod, pt has 1:1 sitter, calm and cooperative, respirations even and unlabored.
[2024-12-25 00:41] VITALS: RESP 16
[2024-12-25 06:07] VITALS: BP 93/53; PULSE 61; RESP 16; TEMP 36.2; O2SAT 96
--- NOTE | 2024-12-25 07:25 | PC.NURSE ---
Care of Pt assumed at change of shift. Pt relocated to pod--shift report received from [facility] and [place]. Breakfast tray provided. Pt currently resting quietly and awaiting disposition.
[2024-12-25 08:17] VITALS: BP 114/60; PULSE 87; RESP 18; TEMP 36.3; O2SAT 99
--- NOTE | 2024-12-25 11:30 | P.CNPS_ITS ---
History of Present Illness Date of Service: 12/25/2024 Chief Complaint: SI, recent d/c from [place] HPI Narrative: 11/16 last seen 01/14/2025 [employer] [email or web address] [facility] reports pt did not receive paliperidone rx, which seems like pt was being taper off due to high prolactin levels. Past Psychiatric History: Inpatient: [facility] back in 2018; [facility] 03/2023; [place] 12/2024. OP: Ivis Rodríguez NP [facility]. Started seeing Ivis since 09/2024 (per information given directly from [facility]) [facility] Medical History (Updated 12/24/24 @ 14:19 by Erendira Ortiz NP) Schizophrenia, paranoid Diagnostics Vital Signs (24Hr): Vital Signs - 24 hr 12/24/24 20:42 12/25/24 00:41 12/25/24 06:07 Temperature 98 F 97.1 F Pulse Rate 83 61 Respiratory Rate 18 16 16 Blood Pressure 116/57 L 93/53 L Pulse Oximetry 99 96 Oxygen Delivery Method Room Air Room Air 12/25/24 08:17 Temperature 97.3 F Pulse Rate 87 Respiratory Rate 18 Blood Pressure 114/60 Pulse Oximetry 99 Oxygen Delivery Method Room Air BMI result Body Mass Index 49.1 Labs 12/22/24 20:27 12/22/24 20:27 Mental Status Exam Mental Status Exam Narrative: Appearance: MO, wearing hospital gown, fair hygiene, in NAD behavior: cooperative and friendly Psychomotor: no agitation or retardation noted. Speech: clear, normal, rate/rhythm/volume, spontaneous TP: mostly linear TC: no overt psychosis, grieving losses she has had including losing costudy of her daughters Mood: depressed Affect: congruent SI: denies any plan or intent to harm herself HI: none VH/AH: no overt Delusions: no overt delusions Insight/judgment: impaired x 2. Memory/cog: alert, oriented x 3. Medications Allergies Allergies Allergy/AdvReac Type Severity Reaction Status Date / Time hazelnut (filbert) Allergy Rash Verified 12/22/24 19:59 cashew nut AdvReac Hypotension Verified 12/25/24 07:07 Chocolate AdvReac Hives Verified 12/22/24 19:59 egg AdvReac Gastrointestinal Verified 12/25/24 07:07 Upset lactose AdvReac Gastrointestinal Verified 12/23/24 13:07 Upset SEAFOOD Allergy Severe ANAPHYLAXIS Uncoded 12/22/24 19:59 Assessment & Plan Assessment & Plan (1) Schizophrenia, paranoid: Status: Acute Code(s): F20.0 - Paranoid schizophrenia (2) Intellectual disability: Status: Acute Code(s): F79 - Unspecified intellectual disabilities Total time managing care of this patient today ____ minutes.
--- NOTE | 2024-12-25 17:44 | PC.NURSE ---
Pt reports her deputy attorney general advised her she has a court appearance on 12/30/24 @ 0900. Information reported to Clinical Coordinator who advised that no immediate action needed at this time given the appearance is several days away.
--- NOTE | 2024-12-25 18:21 | PC.NURSE ---
Pt discusses with this RN that she does not wish to continue the current medications she is prescribed. She requests to have new medications started that have less of an effect on her weight gain. She reports she has been on Geodon in the past and did find it helpful. Med rec noted to be completed by Pharmacy with notes re: awaiting a call back from [place]. No orders entered after Pharmacist review of med rec. Psychiatry in the process of evaluation Pt--Prolactin result pending at this time.
[2024-12-25 19:02] VITALS: BP 151/68; PULSE 82; RESP 18; TEMP 36.3; O2SAT 98
--- NOTE | 2024-12-25 19:28 | PC.NURSE ---
Assumed care of patient at 0645, patient appears to be in no apparent distress at this time, resting in bed, watching TV, offering no complaints to this RN. Continue plan of care for Case Management follow up
[2024-12-25 22:48] VITALS: BP 142/88; PULSE 84; RESP 16; TEMP 36.6; O2SAT 97
--- NOTE | 2024-12-26 07:46 | PC.NURSE ---
Past Medical History Medical History Schizophrenia, paranoid
[2024-12-26 10:22] VITALS: BP 149/64; PULSE 53; RESP 18; TEMP 36.6; O2SAT 100
--- NOTE | 2024-12-26 16:19 | PC.NURSE ---
Patient states she is looking for terminal superintendent respite, in order for DDS/CHD to obtain housing which is causing her to be suicidal.
--- NOTE | 2024-12-26 17:49 | PC.NURSE ---
Patient continues to endorse suicide. Extremely religiously preoccupied and motivated, stating God has given up on her as he has not provided, housing, her children, and a job for her.
[2024-12-27 08:54] VITALS: BP 109/57; PULSE 67; RESP 16; TEMP 36.6; O2SAT 99
[2024-12-27 16:58] VITALS: BP 121/61; PULSE 62; RESP 18; TEMP 36.6; O2SAT 97
[2024-12-28 05:44] VITALS: BP 138/75; PULSE 76; RESP 20; TEMP 36.7; O2SAT 100
--- NOTE | 2024-12-28 07:12 | PC.NURSE ---
Assumed care of patient at 0645, patient appears to be in no apparent distress this am, sitting up in chair, eating breakfast, offering no complaints to this RN. Continue plan of care for case management follow up
[2024-12-28 17:21] VITALS: BP 95/59; PULSE 74; RESP 18; TEMP 36.3; O2SAT 100
--- NOTE | 2024-12-28 17:22 | PC.NURSE ---
Pt spoke with Card Room Manager today on phone as well as social worker clinical. dry cure worker plans to visit patient tomorrow
--- NOTE | 2024-12-28 19:35 | P.CNPS_ITS ---
History of Present Illness Date of Service: 12/28/2024 Chief Complaint: SI, recent d/c from [place] Sources of Information: patient interviewed, chart reviewed and crisis/core team assessment reviewed HPI Narrative: Interim Hx: pt reports she is saddened about not having costudy of her two children. She thinks it is evil forces who have done this to her, and not her difficulties caring for a child. She reports she had suicidal thoughts with plan to eat seefod which causes her to have an anaphylatic reaction. She denies any plan or intent to harm herself but reports it has been very hard for her to accept not having her children with her and also to think that in the future if she finds a partner can't have children if they too will be taken from her. This scientific technical writer spoke with OP psych provider from [facility]. While inpt at [facility] she received invega sustenna, she is due to receive 156mg IM on 01/11, can be given 7 days prior. prolactin level checked last Saturday- they are high at 60. Plan was for pt to continue invega sustenna along with cabergoline to bring prolactin levels done. Past Psychiatric History: Inpatient: [facility] back in 2018; [facility] 03/2023; [place] 12/2020. OP: [facility] Past medication trials: paliperidone, abilify, risperidone, olanzapine, geodone. Medical Evaluation Reviewed: Yes [facility] Medical History (Updated 12/26/24 @ 00:00 by Background Daemon) Schizophrenia, paranoid Diagnostics Vital Signs (24Hr): Vital Signs - 24 hr 12/28/24 05:44 12/28/24 17:21 Temperature 98.1 F 97.4 F Pulse Rate 76 74 Respiratory Rate 20 18 Blood Pressure 138/75 95/59 L Pulse Oximetry 100 100 Oxygen Delivery Method Room Air Room Air BMI result Body Mass Index 49.1 Labs 12/22/24 20:27 12/22/24 20:27 Mental Status Exam Mental Status Exam Narrative: Appearance: MO, wearing hospital gown, fair hygiene, in NAD behavior: cooperative and friendly Psychomotor: no agitation or retardation noted. Speech: clear, normal, rate/rhythm/volume, spontaneous TP: mostly linear TC: no overt psychosis, grieving losses she has had including losing costudy of her daughters Mood: depressed Affect: congruent SI: denies any plan or intent to harm herself HI: none VH/AH: no overt Delusions: no overt delusions Insight/judgment: impaired x 2. Memory/cog: alert, oriented x 3. Medications Medications Current Medications Non-Formulary Medication (Cabergoline) 0.5 mg PO Q7D DOV Paliperidone Palmitate (Paliperidone Palmitate 156 Mg/Ml Syringe) 156 mg IM Q28D DOV Vitamin D (Cholecalciferol (Vitamin D3) 10 Mcg Tablet) 10 mcg PO DAILY DOV Allergies Allergies Allergy/AdvReac Type Severity Reaction Status Date / Time hazelnut (filbert) Allergy Rash Verified 12/22/24 19:59 cashew nut AdvReac Hypotension Verified 12/25/24 07:07 Chocolate AdvReac Hives Verified 12/22/24 19:59 egg AdvReac Gastrointestinal Verified 12/25/24 07:07 Upset lactose AdvReac Gastrointestinal Verified 12/23/24 13:07 Upset SEAFOOD Allergy Severe ANAPHYLAXIS Uncoded 12/22/24 19:59 Assessment & Plan Assessment & Plan (1) Schizophrenia, paranoid: Status: Acute Code(s): F20.0 - Paranoid schizophrenia Plan reports suicidal ideation in context of multiple psychosocial stressors including not having stable place to live and not having costudy of her children. Denies any plan or intent to harm self. PLAN: 1.collateral information from DDS- unclear if case still open. 2. no imminent safety concern to need inpt level of care, but does need more support in the community. 3. continue medications: cabergoline 0.5mg po q 7days; vit d, invega sustenna 156mg IM [id number] (next dose on 01/11, [facility] dose [place]). Total time managing care of this patient today ____ minutes.
[2024-12-28 22:19] VITALS: BP 112/61; PULSE 74; RESP 16; O2SAT 99
--- NOTE | 2024-12-29 05:06 | PC.NURSE ---
pt oob to bathroom
[2024-12-29] MEDS: Cholecalciferol (Vitamin D3) 10 MCG TABLET PO (08:10)
[2024-12-29 08:15] VITALS: BP 114/68; PULSE 83; RESP 20; TEMP 36.1; O2SAT 97
[2024-12-29] MEDS: CABERGOLINE 0.5 MG 0.5 EACH PO (15:45)
--- NOTE | 2024-12-29 16:23 | MHC.CM.ED ---
Received notification patient would not be admitted to psych and guardianship will not be pursued. Met with patient in regards to discharge planning. Patient can either attend court via Zoom (CM will provide an Ipad) or Lyft will be arranged. Patient would prefer to attend via zoom. Ipad will be provided for tomorrow 12/30 at 830am. Patient aware she will be d/c'd after court. Will try to speak to her ex-mother in law about staying with her. T/W will reach out to [facility] to see if there are any bed availability. Continue to monitor for d/c needs.
[2024-12-29 20:22] VITALS: BP 96/56; PULSE 76; RESP 18; TEMP 36.5; O2SAT 99
[2024-12-30 06:20] VITALS: BP 123/59; PULSE 55; RESP 16; TEMP 36.9; O2SAT 98
--- NOTE | 2024-12-30 07:26 | PC.NURSE ---
Assumed care of patient at 0645, patient appears to be in no apparent distress this am, resting in common area, offering no complaints to this RN. Plan is for patient to attend court this am via ipad and then be discharged
[2024-12-30 08:53] VITALS: BP 125/73; PULSE 102; RESP 20; TEMP 36.6; O2SAT 99
[2024-12-30] MEDS: Cholecalciferol (Vitamin D3) 10 MCG TABLET PO (08:58)
--- NOTE | 2024-12-30 09:52 | PC.NURSE ---
assumed care of patient at 0930, patient is in room 7, utilizing ipad for her court appt set up by PRAFUL. patient stated to this RN shes not planning on leaving after her court appointment due to having no where to go. case management and hot car charger aware.
--- NOTE | 2024-12-30 10:02 | MHC.CM.ED ---
Patient remains in ER. Ipad provided for zoom meeting for [place] [facility]. Continue to monitor for d/c needs.
--- NOTE | 2024-12-30 14:14 | PC.NURSE ---
patient remains in ER7, given lunch tray.
--- NOTE | 2024-12-30 14:48 | MHC.CM.ED ---
Addendum entered by Nae Edward 12/30/24 15:27: [facility] will do on-site visit with patient Thursday 01/04 at 11am. Original Note: Patient will remain in ER at this time. Jessie Mendoza working with Sabina from psych about respite and other DDS options. Referral broadcasted for SNF senior care placement. Spoke with Neyda of [facility]. They have a behavioral health unit. Neyda will speak to [facility]. Building may need to speak to . T/W offered for facility to meet patient if needed. Continue to monitor for d/c needs.
[2024-12-30 16:51] VITALS: BP 102/62; PULSE 82; RESP 16; TEMP 36.8; O2SAT 95
[2024-12-30 17:48] VITALS: BP 113/80; PULSE 89; RESP 20; TEMP 36.5; O2SAT 99
[2024-12-30 20:06] VITALS: BP 133/65; PULSE 63; RESP 18; TEMP 36.1; O2SAT 100
[2024-12-31 04:56] VITALS: BP 119/65; PULSE 54; RESP 16; O2SAT 100
--- NOTE | 2024-12-31 07:58 | PC.NURSE ---
pt alert and oriented x4. She denies complaint at this time. She ambulates with a strong steady gait and slept well overnight.
[2024-12-31] MEDS: Cholecalciferol (Vitamin D3) 10 MCG TABLET PO (08:26)
--- NOTE | 2024-12-31 11:09 | PC.NURSE ---
Pt independent with showering/ADL's; calm/cooperative; waiting community placement Saturday; pt denies SI/HI at this time
[2024-12-31 14:00] VITALS: BP 110/70; PULSE 81; RESP 18; TEMP 36; O2SAT 100
--- NOTE | 2024-12-31 14:52 | MHC.CM.ED ---
Patient remains in ER overflow. Patient aware [employer] will be on-site on Saturday to eval patient. Continue to monitor for d/c needs.
--- NOTE | 2024-12-31 17:50 | PC.NURSE ---
Pt remains calm/cooperative/pleasant; pt aware she's likely here in the department until Saturday for community placement/agreeable
[2024-12-31 20:52] VITALS: BP 92/49; PULSE 65; RESP 16; TEMP 36.3; O2SAT 97
[2025-01-01 06:00] VITALS: BP 112/60; PULSE 53; RESP 18; TEMP 36.5; O2SAT 98
[2025-01-01] MEDS: Cholecalciferol (Vitamin D3) 10 MCG TABLET PO (09:01)
--- NOTE | 2025-01-01 09:05 | PC.NURSE ---
Pt A&O X4 VSS NAD no complaints. Calm and cooperative- independent with care.
[2025-01-01 11:56] VITALS: BP 140/79; PULSE 85; RESP 16; TEMP 36.2; O2SAT 100
--- NOTE | 2025-01-01 11:59 | MHC.CM.ED ---
Received notification from Jessie WAN that patient can stay with a friend. Is requesting ride to [facility]. Tk booked. Patient, Jessie WAN and Ivonne OWEN aware. Cotninue to monitor for d/c needs.
[2025-01-01 12:03] VITALS: BP 140/79; PULSE 85; RESP 16; TEMP 36.2; O2SAT 100
== END 2025-01-01 12:05 | disposition home or self-care (01) ==
PROVIDERS: Social Worker; Emergency Provider Emergency Medicine; PCP Internal Medicine
DX: F20.0 Paranoid schizophrenia (principal); R45.851 Suicidal ideations; F79 Unspecified intellectual disabilities; Z79.899 Other long term (current) drug therapy; Z63.32 Other absence of family member; Z65.3 Problems related to other legal circumstances; Z91.013 Allergy to seafood
CPT/HCPCS: 36415; 80053; 80307; 81003; 81025; 84146; 84702; 85025; 99285; S9485

== ENCOUNTER → 2024-12-22 20:53 | Outpatient (BNV) | payer OTHER, SELFPAY | PROVIDERS: Emergency Provider Emergency Medicine; PCP Internal Medicine; Visit Provider Social Worker | DX: F20.0 Paranoid schizophrenia (principal); F79 Unspecified intellectual disabilities | CPT/HCPCS: 99284; 99285 ==

== ENCOUNTER 2025-01-01 17:54 | Emergency (ER) | payer MEDICAID, SELFPAY ==
--- OUTSIDE RECORDS SUMMARY | 2024-12-14 10:15 | XMS_ITS ---
Author Organization [facility] Address [address], [place] [id number] Care Team Providers Care Brake Tester Name Role Phone NO, PCP Primary Care Provider Ema Hunter [phone] Social History Sex Assigned At : Social History Observation Description Sex Assigned At Female Encounters Encounter Location Date Provider Diagnosis [facility] [address] [place] [address] [phone] 12/14/2024 Ema Hunter Plan Of Treatment No Information Progress Notes * Vibha LOPEZ :1995 (29 yo F)Acc No.[id number]:12/14/2024 Case Management Patient: Vibha FORBES Provider: Radha Hunter :1995 A ge:29 Y S ex:Female Date:12/14/2024 Address:[address] [place], [place] [id number] Pcp:PCP NO Subjective: * Chief Complaints: * * Medical History: Objective: Assessment: Plan: * Treatment: * Images: Billing Information: * Visit Code: * Procedure Codes: Care Plan Details* * Electronic signature of Ameya Hunter on 01/01/2025 at 07:28 PM EDT Sign off status: Pending * Provider: Radha Hunter Date: 12/14/2024 Generated for Santosh miller/Jojo/eTransmitting on: 01/01/2025 07:28 PM EDT
[2025-01-01 18:13] VITALS: BP 116/77; BP 160/80; PULSE 117; PULSE 120; RESP 18; TEMP 37; O2SAT 96; O2SAT 98; BMI 47.8
--- NOTE | 2025-01-01 18:31 | ED.GENADULT ---
HPI - General Adult General Chief complaint: Psychiatric Symptoms Stated complaint: Si w/ plan Time Seen by Provider: 01/01/25 18:16 Source: patient Mode of arrival: ambulatory Limitations: no limitations History of Present Illness ED Provider: Adalberto MCDANIEL HPI narrative: The patient is a 29-year-old female presenting to the ED for evaluation of suicidal ideation with plan to eat shellfish which she is allergic to. The patient has a history of schizophrenia and intellectual disability, was seen in this facility on 12/22 for psychiatric evaluation, was cleared psychiatrically on 12/28, deemed not to need inpatient requirement, and was placed in case management observation status. The patient reportedly was set to go to a voluntary residential program/penitentiary on Saturday however was discharged today after she advised she could stay at her friend's house nearby while waiting to permanently moved to a friend's house in [place]. Patient reports she got to her friend's house after discharge and, per the patient, learned her friend would get in trouble with the courts for having her stay at his home, additionally the patient reports she will not be allowed to move to [place] until she has a court date for an outstanding warrant. The patient realized her current situation was not sustainable and returns to the ED reporting suicidal ideation with plan to eat shellfish. The patient denies any actual ingestion of shellfish, denies other attempts at self-harm, denies homicidal ideation or auditory or visual hallucinations. The patient denies any acute somatic complaint. Related Data Home Medications ?Medication ?Instructions ?Recorded ?Confirmed Vitamin D3 1 tab PO DAILY 12/23/24 01/02/25 paliperidone palmitate 117 mg/0.75 117 mg IM QMONTH 12/23/24 01/02/25 mL intramuscular syringe (Invega Sustenna) Allergies Allergy/AdvReac Type Severity Reaction Status Date / Time hazelnut (filbert) Allergy Rash Verified 01/01/25 18:16 cashew nut AdvReac Hypotension Verified 01/01/25 18:16 Chocolate AdvReac Hives Verified 01/01/25 18:16 SEAFOOD Allergy Severe ANAPHYLAXIS Uncoded 01/01/25 18:16 Review of Systems Review of Systems: Yes all other systems are reviewed and are negative PMFSH Past Medical History Medical History (Updated 01/08/25 @ 12:38 by Jaiden Philippe MD) Schizophrenia, paranoid Physical Exam ED Vital Signs: Vital Signs - 24 hr 01/08/25 06:34 01/08/25 14:37 Temperature 98.2 F 98.2 F Pulse Rate 56 56 Respiratory Rate 17 17 Blood Pressure 111/56 L 111/56 L Pulse Oximetry 98 98 Oxygen Delivery Method Room Air Room Air BMI result Body Mass Index 47.8 CONSTITUTIONAL: The patient appears non-toxic, well nourished and in no acute distress. Vital signs as documented. HEAD: Atraumatic, normocephalic. EYES: EOMs grossly intact, pupils equal, conjunctiva clear, no exudate. ENT: Nares patent, no discharge. Airway patent, no audible stridor, visible mucosa is pink and moist without noted lesions. NECK: Trachea is midline, no obvious masses or gross abnormalities. CHEST: Symmetric movement, normal appearance. LUNGS: LS present and CTAB, no w/r/r. Non-labored work of breathing. CARDIAC: Regular Rhythm, S1/S2 appreciated, no murmurs, rubs or gallops. ABDOMEN: Abdomen soft and non-tender x4 quadrants, no palpable masses or organomegaly. : Deferred. EXTREMITIES: Normal tone, moves all extremities spontaneously without reported pain. No obvious acute injury or deformity noted. NEURO: Alert and oriented x3, CN II-XII appear grossly intact. Cerebellar Functioning grossly intact. No obvious sensory or motor deficits. Speech clear and appropriate. PSYCH: normal affect, appropriate eye contact, fluid speech, with appropriate response to questioning. No reported homicidality. Patient does not appear to be responding to internal stimuli. SKIN: Warm, dry, color appropriate, normal turgor. No rashes noted. Course Course Course Narrative: Time: 08:39 Date: 01/02/25 Provider: Aissatou Guy, DO Patient in physician observation for psychiatric evaluation.? No acute events reported overnight. No current complaints. VS stable.? Pending CARE team evaluation. Will continue to monitor. she was just seen here for same situation cleared by CARE then referred to patient chose to go stay with friend but that plan seems to have fallen through. Reevaluation(s) Reevaluation #1: Time: 07:35 Date: 01/03/25 Provider: Aissatou Guy, DO Patient in physician observation for psychiatric evaluation.? No acute events reported overnight. No current complaints. VS stable.? Patient is pending case management input. Will continue to monitor. Reevaluation #2: Time: 17:02 Date: 01/05/25 Provider: Aung Coppola MD Patient in physician observation for psychiatric evaluation and case management input. The patient is a 29-year-old female who had presented with vague suicidal ideation. She was not felt to be managing in the community. I believe she has some degree of developmental delay or cognitive impairment.? No acute events reported overnight. No current complaints. VS stable.? The patient has been cleared by the care team. At this point I believe disposition is dependent on case management input. We will maintain physician observation for now. Time: 17:06 Reevaluation #3: Time: 06:15 Date: 01/06/25 Provider: Jaiden Philippe MD Patient in physician observation for psychiatric evaluation.? No acute events reported overnight. No current complaints. VS stable.? Patient was evaluated by case management who is working on placement at various facilities. Will continue to monitor. Additional Reevaluation(s): Time: 06:16 Date: 01/07/25 Provider: Jaiden Philippe MD Patient in physician observation for psychiatric evaluation/care team placement.? No acute events reported overnight. No current complaints. VS stable.? Waiting on disposition from case management. Will continue to monitor. Time: 06:30 Date: 01/08/25 Provider: Jaiden Philippe MD Patient in physician observation for psychiatric evaluation/case management.? Patient has been in the emergency department for 156 hours. No acute events reported overnight. No current complaints. VS stable.? Waiting for case management placement. We will continue to monitor Time: 12:33 Date: 01/08/25 Provider: Jaiden Philippe MD Physician observation ended at 12:33 hours. Patient was evaluated by our assistant case manager, Hamida Gomes who states the patient has not been accepted at any of the short-term care facilities. Patient has been cleared by psychiatric service therefore there is no further need to keep her in the emergency department at this time. Therefore, the patient will be discharged. Medications Administered Discontinued Medications Generic Name Dose Route Start Last Admin Trade Name Freq PRN Reason Stop Dose Admin Acetaminophen 975 mg 01/03/25 11:27 01/03/25 11:35 Acetaminophen 325 Mg Tablet PO 01/03/25 11:28 975 mg ONCE ONE Administration Acetaminophen 975 mg 01/04/25 06:41 01/04/25 06:58 Acetaminophen 325 Mg Tablet PO 01/04/25 06:42 975 mg ONCE ONE Administration Acetaminophen 650 mg 01/07/25 15:21 01/07/25 15:23 Acetaminophen 325 Mg Tablet PO 01/07/25 15:22 650 mg ONCE ONE Administration Olanzapine 5 mg 01/05/25 08:34 01/05/25 09:41 Olanzapine 5 Mg Tablet PO 01/05/25 08:35 Not Given ONCE ONE Vitamin D 25 mcg 01/03/25 09:00 01/08/25 10:09 Cholecalciferol (Vitamin D3) 25 Mcg Tablet PO 25 mcg DAILY DOV Administration Medical Decision Making Medical Decision Making MDM Narrative: 6:52 PM 01/01/2025 (Edvin MCDANIEL): Patient is a 29-year-old female with a history of schizophrenia and intellectual disability presenting to the ED for reported suicidal ideation with a plan. The patient has no acute somatic complaints, exam is benign, patient was discharged from this facility earlier today however outpatient living situation was not sustainable and she returns to the ED reporting suicidal ideation. The patient will be evaluated with repeat laboratory workup, urinalysis, UDS, and when medically cleared we will plan for repeat psychiatric evaluation. 7:44 PM 01/01/2025 (Edvin MCDANIEL): The patient's laboratory evaluation is reassuring, patient is medically cleared for crisis evaluation. Lab Data 01/01/25 18:46 01/01/25 18:46 Labs: Lab Results 01/01/25 01/01/25 01/07/25 Range/Units 18:45 18:46 07:40 WBC 10.8 (4.8-10.8) X10*3/uL RBC 4.44 (4.20-5.50) X10*6/uL Hgb 12.6 (12.0-16.0) g/dl Hct 38.4 (37.0-47.0) % MCV 86.5 (80.0-98.0) fL MCH 28.4 (27.0-33.0) pg MCHC 32.8 (31.0-35.0) g/dl RDW 14.0 (11.0-16.0) % Plt Count 279 (160-400) X10*3/uL MPV 9.2 L (9.4-12.3) fL Immature Gran % (Auto) 0.4 (0.0-0.4) % Neut % (Auto) 70.5 (45-73) % Lymph % (Auto) 22.0 (20-40) % [place] % (Auto) 6.7 (2-11) % Eos % (Auto) 0.3 (0-4) % Baso % (Auto) 0.1 (0-2) % Lymph # (Auto) 2.4 (1.2-4.9) X10*3/uL [place] # (Auto) 0.7 (0.1-1.2) X10*3/uL Eos # (Auto) 0.0 (0.0-0.4) X10*3/uL Baso # (Auto) 0.0 (0.0-0.2) X10*3/uL Abs Immat Gran (auto) 0.04 H (0.00-0.03) X10*3/uL Absolute Neuts (auto) 7.6 (2.0-8.3) x10*3/uL Absolute Nucleated RBC 0.000 (0.0-0.012) X10*3/uL Nucleated RBC % (auto) 0.0 (0.0-0.2) /100WBC Sodium 142 (135-145) mmol/L Potassium 4.2 (3.3-5.1) mmol/L Chloride 108 (96-108) mmol/L Carbon Dioxide 25 (22-29) mmol/L Anion Gap 13 (12-20) BUN 17 H (9-16) mg/dL Creatinine 0.89 (0.5-1.4) mg/dL Estim Creat Clear Calc 120.5 Estimated GFR > 60 Random Glucose 73 (60-115) mg/dL Estimat Average Glucose 100 mg/dL Hemoglobin A1c % 5.1 (<6.0) % Calcium 9.3 (8.4-10.2) mg/dL Magnesium 2.0 (1.6-2.6) mg/dL Total Bilirubin 0.2 (0.0-1.0) mg/dL AST 20 (5-31) U/L ALT 17 (0-31) U/L Alkaline Phosphatase 93 (39-117) U/L Total Protein 7.9 (6.5-8.0) g/dL Albumin 4.3 (3.5-5.0) g/dL Triglycerides 80 (<150) mg/dL Cholesterol 167 (<200) mg/dL LDL Cholesterol, Calc 116 H (<100) mg/dL HDL Cholesterol 35 L (>40) mg/dL TSH 1.59 (0.32-4.0) uIU/mL Prolactin 74.0 H ng/mL Urine Color Yellow Urine Appearance Clear Urine pH 5.5 (5.0-9.0) Ur Specific [place] >= 1.030 H (1.005-1.025) Urine Protein Negative (Neg-Trace) mg/dL Urine Glucose (UA) Negative (Negative) mg/dL Urine Ketones Trace (Negative) mg/dL Urine Blood Negative (Negative) Urine Nitrite Negative (Negative) Ur Leukocyte Esterase Trace H (Negative) Urine RBC 0-2 (0-2) /HPF Urine WBC 0-5 (0-5) /HPF Ur Squamous Epith Cells 0-2 (0-2) /HPF Urine Bacteria Trace (None Seen) Hyaline Casts 0-2 (0-2) /LPF Salicylates < 5.0 L (15-30) mg/dL Urine Opiates Screen Not Detected (Not Detect) Ur Buprenorphine Scrn Not Detected (Not Detect) ng/mL Ur Oxycodone Screen Not Detected (Not Detect) ng/mL Urine Methadone Screen Not Detected (Not Detect) ng/mL Urine Fentanyl Screen Not Detected (Not Detect) Acetaminophen < 3 (<30) mcg/mL Ur Barbiturates Screen Not Detected (Not Detect) Ur Phencyclidine Scrn Not Detected (Not Detect) Ur Amphetamines Screen Not Detected (Not Detect) U Benzodiazepines Scrn Not Detected (Not Detect) Urine Cocaine Screen Not Detected (Not Detect) U Marijuana (THC) Screen Not Detected (Not Detect) Ethyl Alcohol < 10 mg/dL Discharge Plan Discharge Clinical Impression: Suicidal ideation Patient Disposition: Home, Self-Care Additional Instructions: Continue taking medications as prescribed by your providers. You were seen in our Emergency Department today for treatment of a behavioral health issue. It is important after your visit that you follow up with either your behavioral health provider or a primary care doctor within 7 days.? If you have trouble finding a therapist you can reach out to [address] [phone] The National Suicide and Crisis Lifeline can be reached 7 days a week 24 hours a day.? Call 988 to speak with someone.? Return for any worsening symptoms or concerns such as thoughts of self harm or harm to others. Please call 911 if you feel your mental health is worsening.? Prescriptions: No Action Invega Sustenna 117 mg/0.75 mL Syringe 117 mg IM QMONTH Vitamin D3 1 tab PO DAILY Referrals: Hadley Porras MD [Primary Care Provider, Medical] Interventions: [place]-Suicide Risk Severity Scale Last Done: 01/08/25 07:00 ED Discharge Assessment Last Done: 01/08/25 14:37 Discharge Date/Time: 01/08/25 15:04 Print Language: Korean
[2025-01-01 19:12] LABS: MANUAL DIFF FLAG NO
[2025-01-01 19:15] LABS: Appearance Urine Clear; Glucose Urine UA Negative (Negative); PH 5.5 (5.0-9.0); Specific Gravity - Urine >= 1.030 (1.005-1.025); UMIC TRIGGER UACC YES
[2025-01-01 19:17] LABS: Hematocrit 38.4 % (37.0-47.0); Hemoglobin 12.6 g/dl (12.0-16.0); Imm Gran Abs Auto 0.04 X10*3/uL (0.00-0.03); Imm Gran Pct Auto 0.4 % (0.0-0.4); Lymphocytes Absolute Auto 2.4 X10*3/uL (1.2-4.9); Mean Corpuscular HGB Conc 32.8 g/dl (31.0-35.0); Mean Corpuscular Hemoglobin 28.4 pg (27.0-33.0); Mean Corpuscular Volume 86.5 fL (80.0-98.0); NRBC Abs Auto 0.000 X10*3/uL (0.0-0.012); NRBC Pct Auto 0.0 /100WBC (0.0-0.2); Platelet Count 279 X10*3/uL (160-400); Red Blood Count 4.44 X10*6/uL (4.20-5.50); White Blood Count 10.8 X10*3/uL (4.8-10.8)
[2025-01-01 19:24] LABS: Cannabinoid Screen Urine Not Detected (Not Detect)
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
--- OUTSIDE RECORDS SUMMARY | 2025-01-01 19:29 | XMS_ITS | Patient Health Record ---
Author Organization Jaycee Watson MD [facility] Address [address] [place] [id number] Care Team Providers Care Draw Off Worker Name Role Phone JAYCEE WATSON Unavailable [phone] Reason For Referral No Information Plan Of Treatment No Information
[2025-01-01 19:36] LABS: Acetaminophen LAB < 3 mcg/mL (<30); Alanine Aminotransferase 17 U/L (0-31); Albumin Level 4.3 g/dL (3.5-5.0); Alkaline Phosphatase 93 U/L (39-117); Anion Gap 13 (12-20); Aspartate Amino Transferase 20 U/L (5-31); Blood Urea Nitrogen 17 mg/dL (9-16); Calcium 9.3 mg/dL (8.4-10.2); Carbon Dioxide 25 mmol/L (22-29); Chloride 108 mmol/L (96-108); Creatinine Clr Calc Pharmacy 120.5; Estimated Glomerular Filt Rate > 60; Magnesium 2.0 mg/dL (1.6-2.6); Potassium 4.2 mmol/L (3.3-5.1); Salicylate < 5.0 mg/dL (15-30); Sodium 142 mmol/L (135-145); Total Protein 7.9 g/dL (6.5-8.0)
--- NOTE | 2025-01-01 20:45 | MHC.CARE ---
Patient's SI only in the context of failed discharge plan. She is denying current SI/HI/AVH. Previously being followed by case management with plan to d/c to [place] on Saturday, 01/04. CARE team consulted with ED provider, Dr. Caleb Webster, patient will be referred back to case management
--- NOTE | 2025-01-01 23:05 | MHC.CM.ED ---
Pt returned to ED. Was scheduled for an onsite visit with [facility] on Saturday at 11 am. Pt left today to stay with a friend. Pt could not stay because her friend lives in section 8 housing. Pt returned to ED. Pt is unhoused. She is active with [facility]. She stated she would commit suicide by eating shellfish, as she is allergic. CARE team assessment is pending. CM will defer until CARE team assessment.
--- NOTE | 2025-01-02 06:12 | PC.NURSE ---
pt calm and cooperative and slept well throughout the night. pt did not display any symptoms or behaviors of concern. plan of care ongoing.
[2025-01-02 06:41] VITALS: BP 133/61; PULSE 56; RESP 17; TEMP 36.5; O2SAT 99
--- NOTE | 2025-01-02 07:26 | PC.NURSE ---
Assumed care of patient at 0645, patient appears to be in no apparent distress this am, sleeping on couch, respirations even and unlabored. Continue plan of care for Case management follow up
--- NOTE | 2025-01-02 07:30 | PC.NURSE ---
Re: med rec This Rn completed medication reconciliation with documentation [place] [facility] [place]
[2025-01-02 14:38] VITALS: BP 108/59; PULSE 93; RESP 16; TEMP 37.2; O2SAT 100
--- NOTE | 2025-01-02 19:20 | PC.NURSE ---
Took for SOCO Pavon pt is resting at this time and cooperative
--- NOTE | 2025-01-03 03:06 | PC.NURSE ---
pt oob to bathroom
[2025-01-03 06:25] VITALS: BP 108/56; PULSE 59; RESP 18; TEMP 36.6; O2SAT 98
--- NOTE | 2025-01-03 07:11 | PC.NURSE ---
Assumed care of patient at 0645, patient appears to be in no apparent distress this am, calm and cooperative, offering no complaints to this RN. Continue plan of care for case management follow up
[2025-01-03 16:44] VITALS: BP 137/77; PULSE 67; RESP 16; TEMP 36.6; O2SAT 99
--- NOTE | 2025-01-03 16:59 | PHA.MEDREC ---
Pharmacy Consult ? Medication Reconciliation Pharmacy has reviewed the medication reconciliation done by nursing.
[2025-01-04 03:08] VITALS: RESP 16
--- NOTE | 2025-01-04 03:41 | PC.NURSE ---
Assumed care of pt from Birgit WAN at 0300. Pt resting in bed, no apparent distress at this time. Safety checks in place.
[2025-01-04 06:27] VITALS: BP 128/71; PULSE 64; RESP 16; TEMP 36.8; O2SAT 97
--- NOTE | 2025-01-04 06:28 | PC.NURSE ---
pt up and ambulated to the bathroom. VS obtained by repair manager. Pt reporting 8/10 lower back pain/discomfort. Message sent to . Awaiting orders at this time.
--- NOTE | 2025-01-04 10:55 | PC.NURSE ---
patient requesting to speak to inpatient psych to change her medications.
--- NOTE | 2025-01-04 11:02 | MHC.CM.ED ---
Patient remains in pod. Per note from Giovanna of Care Team, No SI. There is documentation stating patient was scheduled to d/c to [facility] today 01/04. This is not the case. [facility] has a behavioral health unit. Facility was willing to visit patient on-site to complete assessment. Will reach out to [facility] to see if this option is still available. Continue to monitor for d/c needs.
[2025-01-04 15:51] VITALS: BP 127/74; PULSE 75; RESP 18; TEMP 37.2; O2SAT 98
--- NOTE | 2025-01-04 16:00 | MHC.EDTECH ---
Patient asking for update on status of either being assessed by [facility] or transferring to that facility. Patient also states that she has an in person court date on 01/06/2025 and is asking for a letter stating that she is here and can't appear in court. Patient states staff attorney is aware that she is at [facility].
--- NOTE | 2025-01-05 07:36 | PC.NURSE ---
Assumed care of patients at 0645, patient appears to be sleeping this am, respirations even and unlabored. Continue plan of care for case management follow up
[2025-01-05 09:29] VITALS: BP 98/52; PULSE 84; RESP 16; TEMP 36.9; O2SAT 99
--- NOTE | 2025-01-05 12:05 | MHC.CM.ED ---
Addendum entered by Nae Edward 01/05/25 14:48: Received return telephone call from Mikala. She was assigned to patient for transition of care from [place]. Issues related to d/c discussed with Mikala will reach out to Kandace at [facility]. Original Note: Patient remains in ER BH pod. Received notification from Neyda of [employer] that leadership will have a meeting to discuss if they can accommodate patient. Requesting HCP. Patient has been to [facility] in the past. Looking for copy from their medical records. If none available, will complete HCP with patient. Patient requested CM speak with Mikala, care asst for Care Cooperation at [phone]. Attempted to call. Left a message requesting return telephone call. Continue to monitor for d/c needs.
--- NOTE | 2025-01-05 21:12 | MHC.CM.ED ---
CM met with patient to discuss ongoing discharge planning. Pt is aware that [facility] has not accepted her to their behavioral pod, but are considering a Respite option for her. Pt is agreeable to respite. HCP has been reviewed, completed and signed. Copies given. Placed with patients belongings in locker 8 at her request. HCP is her mother, Stephanie Buckner ([phone]. She lives in [place], [place]. Pt expresses concerns about her medications. She feels they are not working for her and would like to start taking respirodol again. CM will speak with provider regarding psych consult for medication management. Pt is concerned about [place] court date tomorrow that she has. She states she is the defendant. CM called and let w message with her cd technician Tico Maldonado [phone]). Return call requested. Pt is also concerned about a PO box she has at [facility] in [place]. She tells CM she will lose her PO box if she does not check in. She gives CM permission to call them and tell them she is in the hospital. [phone]. CM is waiting to hear from [facility] in the am regarding possible transport to their facility for respite.
[2025-01-06 06:29] VITALS: BP 132/73; PULSE 65; RESP 17; TEMP 36.7; O2SAT 100
--- NOTE | 2025-01-06 07:11 | PC.NURSE ---
Assumed care of patient at 0645, patient appears to be in no apparent distress this am, reporting displeasure with breakfast. Kitchen called for alternative breakfast. Continue plan of care for case management follow up
--- NOTE | 2025-01-06 11:54 | MHC.CM.ED ---
Addendum entered by Nae Edward 01/06/25 13:53: [facility] has denied. [facility] Original Note: Patient remains in [facility] Pod. Received notification from Neyda of [facility]. [facility] is not able to offer a bed at this time. However, Neyda has asked [facility] to review. Spoke with Renee at [facility] via telephone at [phone]. Renee is aware patient is in ER and worried about losing her PO Box. CM contact info provided. Continue to monitor for d/c needs.
--- NOTE | 2025-01-06 15:09 | MHC.CM.ED ---
Received return telephone call fro Kalie at [facility]. She is patient's case supervisor. She can be reached via telephone at [phone]. Kalie is looking into housing for patient. Kalie is aware patient is currently in ER. Continue to monitor for d/c needs.
--- NOTE | 2025-01-06 15:51 | PC.NURSE ---
patient stating she does not wish to be started on any new medications, especially any medications that require injections d/t the fact she cannot see any results from them.
--- NOTE | 2025-01-06 18:12 | MHC.CM.ED ---
CM met with patient at her request. Pt remains agreeable to respite. She is aware that [facility] cannot offer her a bed. She is aware that a referral has been placed at [facility] near [place]. CM explained that if [facility] does not have a bed, CM will place local referrals for respite. Pt met with Erendira edwards NP regarding medication changes. Pt understands and agrees that new medications will not be tried at this point, as she is doing well and feeling well. Pt is requesting to go to overflow. Pt has been cleared by psych. Charge nurse aware of request. CM will follow
[2025-01-06 18:35] VITALS: BP 133/77; PULSE 76; RESP 18; TEMP 36.2; O2SAT 99
--- NOTE | 2025-01-06 19:20 | P.CNPS_ITS ---
History of Present Illness Date of Service: 01/06/2025 Chief Complaint: Si w/ plan Sources of Information: patient interviewed, chart reviewed and crisis/core team assessment reviewed HPI Narrative: Ms. Ng is a 29 year-old woman with hx of schizophrenia who self presented to [facility] ED reporting depressed mood and suicidal ideation in context of not having stable place to live and not seeing her children. Pt was seen by care team and dispo is to follow up with OP providers. Pt seen last week for similar presentation. Pt had requested to see psychiatry to discuss medication changes. Pt presents as calm and cooperative. She reports sadness about not having custody of her two children. She also reports she is worried about not having a stable place to live. She has limited insight into severity of her mental illness, need for ongoing treatment. She denies any plan or intent to hurt herself. Pt has been on invega sustenna which was given while she was at [facility]. Next Invega sustenna is due on 01/11/25, it can be given 7 days prior. Pt reports she is concern about weight gain. She also reports concern in terms of high prolactin levels for which she is receiving weekly treatment with cabergoline 0.5mg. She last received dose here in the hospital last week. due for this week's dose. Past Psychiatric History: Inpatient: [facility] back in 2018; [facility] 03/2023; [place] 12/2024. OP: [facility] Past medication trials: paliperidone, abilify, risperidone, olanzapine, geodone. [facility] Medical History (Updated 12/26/24 @ 00:00 by Background Daaleks) Schizophrenia, paranoid Diagnostics Vital Signs (24Hr): Vital Signs - 24 hr 01/06/25 06:29 01/06/25 18:35 Temperature 98.1 F 97.2 F Pulse Rate 65 76 Respiratory Rate 17 18 Blood Pressure 132/73 133/77 Pulse Oximetry 100 99 Oxygen Delivery Method Room Air Room Air BMI result Body Mass Index 47.8 Labs 01/01/25 18:46 01/01/25 18:46 Mental Status Exam Mental Status Exam Narrative: Appearance: MO, wearing hospital gown, fair hygiene, in NAD behavior: cooperative and friendly Psychomotor: no agitation or retardation noted. Speech: clear, normal, rate/rhythm/volume, spontaneous TP: mostly linear TC: no overt psychosis, grieving losses she has had including losing costudy of her daughters Mood: depressed Affect: congruent SI: denies any plan or intent to harm herself HI: none VH/AH: no overt Delusions: no overt delusions Insight/judgment: impaired x 2. Memory/cog: alert, oriented x 3. Medications Medications Current Medications Vitamin D (Cholecalciferol (Vitamin D3) 25 Mcg Tablet) 25 mcg PO DAILY DOV Last Admin: 01/06/25 08:29 Dose: 25 mcg Allergies Allergies Allergy/AdvReac Type Severity Reaction Status Date / Time hazelnut (filbert) Allergy Rash Verified 01/01/25 18:16 cashew nut AdvReac Hypotension Verified 01/01/25 18:16 Chocolate AdvReac Hives Verified 01/01/25 18:16 lactose AdvReac Gastrointestinal Verified 01/01/25 18:16 Upset SEAFOOD Allergy Severe ANAPHYLAXIS Uncoded 01/01/25 18:16 Assessment & Plan Assessment & Plan (1) Schizophrenia, paranoid: Status: Acute Code(s): F20.0 - Paranoid schizophrenia (2) Intellectual disability: Status: Acute Code(s): F79 - Unspecified intellectual disabilities Plan Ms. Ng is a 29 year-old woman with hx of schizophrenia, intellectual disability who self presented due to depressed mood, suicidal ideation. She is known to this continuity writer for several years through previous psychiatric hospitalizations. She currently presents as stable psychiatrically in that she is not acutely psychotic nor delusional. She does make some reference to yarsani themes and thinks devil has conspired in terms of children being removed from her care with insight that both pregnancies she was admitted to psychiatric hospital and unable to care for her children. She expresses appropriate sadness to loses she has had in her life and worry about not having [place] housing. She does not see the need to continue psychotropic medications, which is concerning as when she decompensates she is very sick and takes time to get better. This is in fact the most stable I have seen in years. She is currently awaiting placement. We discussed that changing medications at this time may not be best idea but she can work with OP psych provider from [facility] to consider different medication. PLAN 1. no imminent safety concern in terms of SI/HI/VH/AH or overt delusional content. Some residual yarsani ideas present. 2. recommend to continue Invega Sustenna 156mg IM due on 01/11, but can be given 7 days prior 3. check prolactin levels, a1c, lipid panel 4. 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 Total time managing care of this patient today ____ minutes.
[2025-01-06 21:39] VITALS: BP 104/54; PULSE 60; RESP 14; TEMP 36.1; O2SAT 98
[2025-01-07 06:00] VITALS: BP 113/64; PULSE 51; RESP 14; TEMP 36.2; O2SAT 98
--- NOTE | 2025-01-07 07:54 | PC.NURSE ---
Addendum entered by Valerie Padilla RN 01/07/25 07:57: Patient is a 29 year-old woman with hx of schizophrenia, intellectual disability who self presented due to depressed mood, suicidal ideation. History of previous psychiatric hospitalizations. She currently presents as stable psychiatrically in that she is not acutely psychotic nor delusional per psychiatry.. She does make some reference to adventism themes and thinks god is doing this to her in terms of children being removed from her care and homelessness. Patient is alert, oriented and cooperative. States intermittently sad and has fleeting suicidal thoughts Respirations even and non-labored. Abdomen soft, non-tender with positive bowel sounds. Positive pedal pulses with no edema. Pending respite bed. Original Note: Medical History Schizophrenia, paranoid
[2025-01-07 08:01] LABS: Hemoglobin A1C 103.7095 umol/L; Total Hemoglobin (HGBA1C) 3190.1746 umol/L
[2025-01-07 08:13] LABS: Cholesterol 167 mg/dL (<200); HDL Cholesterol 35 mg/dL (>40); Triglycerides 80 mg/dL (<150)
--- NOTE | 2025-01-07 08:38 | PC.NURSE ---
Patient transitioned to the pod secondary to darrion vague suicidal thoughts. Report given to the Lois WAN in the pod
--- NOTE | 2025-01-07 08:47 | PC.NURSE ---
Patient requesting vegetarian diet , diet order changed
--- NOTE | 2025-01-07 10:33 | MHC.EDTECH ---
Patient belongings now located in [place] [id number]
--- NOTE | 2025-01-07 14:20 | PC.NURSE ---
Patient on phone upset about situation with her children. Came to nurses station and stated she needs to speak to case management. Case management aware and will come see patient. Patient redirected to room to calm. Message sent to [place] per patient request.
--- NOTE | 2025-01-07 14:48 | MHC.CM.ED ---
Patient remains in ER. [facility] is unable to offer a bed. Referral will be broadcasted locally. Continue to monitor for d/c needs.
[2025-01-07 15:29] VITALS: BP 119/77; PULSE 104; RESP 14; TEMP 36.2; O2SAT 97
--- NOTE | 2025-01-07 18:28 | PC.NURSE ---
Patient clam and cooperative, showered, ambulating on unit with steady gait. Ate well for dinner
--- NOTE | 2025-01-07 19:15 | MHC.CM.ED ---
Local referrals made by previous CM. [facility], [facility] and [facility]. Other facilities denied patient due to mental health concerns. Pt is very difficult to place.
--- NOTE | 2025-01-07 19:41 | PC.NURSE ---
Assumed care of patient at 1845, patient appears to be in no apparent distress this evening, resting in bed, respirations even and unlabored. Continue plan of care for case management follow up
--- NOTE | 2025-01-07 23:57 | PC.NURSE ---
pt sleeping at this time.
[2025-01-08 06:34] VITALS: BP 111/56; PULSE 56; RESP 17; TEMP 36.8; O2SAT 98
--- NOTE | 2025-01-08 07:19 | PC.NURSE ---
Patient is a 29 year-old woman with hx of schizophrenia, intellectual disability who self presented due to depressed mood, suicidal ideation. History of previous psychiatric hospitalizations. She currently presents as stable psychiatrically in that she is not acutely psychotic nor delusional per psychiatry.. She does make some reference to sabianist themes and thinks god is doing this to her in terms of children being removed from her care and homelessness. Patient is alert, oriented and cooperative. States intermittently sad and has fleeting suicidal thoughts Respirations even and non-labored. Abdomen soft, non-tender with positive bowel sounds. Positive pedal pulses with no edema. Patient transitioned from overflow back to the behavioral health pod yesterday due to vague suicidal statements. Pending respite bed. Original Note: Medical History Schizophrenia, paranoid
--- NOTE | 2025-01-08 12:36 | MHC.CM.PN ---
Addendum entered by Hamida Gomes 01/08/25 15:22: CM MET WITH PT WHO UNDERSTANDS SHE WILL DC SHE REPORTS SHE IS NOT INTERESTED IN GOING TO A SNF SHE SAYS WANTED TO GO TO [facility] TO RESTART HER PSYCH MEDS,BUT UNDERSTANDS THAT SHE WAS CLEARED BY PSYCH HERE SHE SAYS SHE ALSO WANTED TO GO TO RESPITE BUT [facility] WOULD NOT APPROVE A BED OR MAKE A REFERRAL SHE SAYS SHE WANTS TO GO TO [facility] AND MAYBE STAY AT THE LIVING ROOM, BUT NOT YET SHE HAS SEVERAL THINGS TO GET DONE INCLUDING GETTING HER PHONE FIXED SHE SAYS SHE WOULD LIKE TO GO TO [facility] TODAY AND HAS MONEY TO STAY THE WEEKEND ON SATURDAY SHE WILL [facility] TO [facility] WHERE SHE HAS BEEN IN [facility] IN THE PAST PT TRANSPORTED TO [facility] VIA [facility] Original Note: PT HAS BEEN CLEARED BY CARE TEAM AND PSYCH SNF REFERRALS HAVE BEEN BROADCAST MULTIPLE TIMES AND THERE ARE NOT BED OFFERS PT ALSO DOES NOT REQUIRE SNF LOC SHE IS FUNCTIONALLY INDEPENDENT PT WILL DC WITH A LONG-TERM LIST TODAY
[2025-01-08 14:37] VITALS: BP 111/56; PULSE 56; RESP 17; TEMP 36.8; O2SAT 98
== END 2025-01-08 15:04 | disposition home or self-care (01) ==
PROVIDERS: Emergency Medicine; Social Worker; Emergency Provider Emergency Medicine Emergency Medical Services; PCP Internal Medicine
DX: R45.851 Suicidal ideations (principal); F20.0 Paranoid schizophrenia; F79 Unspecified intellectual disabilities; Z79.899 Other long term (current) drug therapy
CPT/HCPCS: 36415; 80053; 80061; 80143; 80179; 80307; 81001; 83036; 83735; 84146; 84443; 85025; 99285

== ENCOUNTER → 2025-01-01 19:26 | Outpatient (BNV) | payer OTHER, SELFPAY | PROVIDERS: Emergency Provider Emergency Medicine; PCP Internal Medicine; Visit Provider Social Worker | DX: F20.0 Paranoid schizophrenia (principal); F79 Unspecified intellectual disabilities | CPT/HCPCS: 99284 ==